=== PATIENT | female | born 1935 | race Two or more races ===

== ENCOUNTER 2021-08-21 13:15 | Inpatient (IN) | payer MEDICARE, OTHER ==
[~2021-08-21] VITALS: Ht 165.1 cm; Wt 62.6 kg
--- NOTE | 2021-08-21 13:28 | NUR ---
DR JEAN-BAPTISTE AT BEDSIDE
--- NOTE | 2021-08-21 13:35 | NUR ---
COVID 19 AG SWAB DONE AND SENT TO LAB
--- NOTE | 2021-08-21 13:55 | NUR ---
URINE SAMPLE COLLECTED FROM DUFFY CATHETER. SENT TO LAB
[2021-08-21] MEDS ORDERED: IV NS 0.9% 1,000 ML BAG IV ONE ×2 (14:00→15:30)
[2021-08-21 14:16] LABS: BASOPHILS % (AUTO) 0.3 % (0.0-2.0); EOSINOPHILS % (AUTO) 0.5 % (0.0-6.0); HEMATOCRIT 34 % (33-45); HEMOGLOBIN 11.5 g/dL (11.5-14.8); LYMPHOCYTES # (AUTO) 1.9 K/uL (0.8-4.8); LYMPHOCYTES % (AUTO) 24.1 % (20.0-44.0); MEAN CORPUSCULAR HGB CONC 34 g/dl (31.0-36.0); MEAN CORPUSCULAR VOLUME 98 fL (82-100); MONOCYTES # (AUTO) 0.7 K/uL (0.1-1.30); MONOCYTES % (AUTO) 8.9 % (2.0-12.0); NEUTROPHILS # (AUTO) 5.2 K/uL (1.8-8.9); NEUTROPHILS % (AUTO) 66.2 % (43.0-81.0); PLATELET COUNT (AUTO) 94 K/uL (150-450); WHITE BLOOD COUNT (AUTO) 7.9 K/uL (4.3-11.0)
[2021-08-21 14:19] LABS: BILIRUBIN,URINE NEGATIVE (NEGATIVE); COLOR,URINE YELLOW (YELLOW); LEUKOCYTE ESTERASE ,URINE MODERATE (NEGATIVE); NITRITE, URINE POSITIVE (NEGATIVE); PH,URINE 5.5 (5.0-8.0); PROTEIN,URINE 30 mg/dl (NEGATIVE); UGLUCOSE NEGATIVE (NEGATIVE); UROBILINOGEN,URINE 0.2 EU/dL (0.2)
--- NOTE | 2021-08-21 14:21 | NUR ---
MOVE SHEET SUBMITTED AND CALLED FOR TELE BED.
[2021-08-21 14:22] LABS: CALCIUM, SERUM 8.7 mg/dL (8.5-10.1); CARBON DIOXIDE 31 mmol/L (21-32); CHLORIDE 105 mmol/L (98-107); CREATININE 1.4 mg/dL (0.6-1.3); GLUCOSE 281 mg/dL (74-106); POTASSIUM 4.5 mmol/L (3.5-5.1); SODIUM SERUM 144 mmol/L (136-145); UREA NITROGEN, BLOOD 66 mg/dL (7-18)
[2021-08-21] MEDS ORDERED: MIRT-90 PO (14:22)
[2021-08-21] MEDS ORDERED: GLIP5TAB13 PO (14:22)
[2021-08-21] MEDS ORDERED: ATOR10TA PO (14:22)
[2021-08-21] MEDS ORDERED: FURO40TA5 PO (14:22)
[2021-08-21] MEDS ORDERED: DIGO125T PO (14:22)
[2021-08-21] MEDS ORDERED: PANT40TA49 PO (14:22)
[2021-08-21] MEDS ORDERED: TAMS-12 PO (14:22)
[2021-08-21] MEDS ORDERED: FOLI0.4T6 PO (14:22)
[2021-08-21] MEDS ORDERED: CARV25TA2 PO (14:22)
[2021-08-21 14:23] LABS: SERUM AMMONIA 18 umol/L (11-32)
[2021-08-21 14:32] LABS: ACETAMINOPHEN < 2 ug/ml (10-30); ALANINE AMINOTRANSFERASE 26 U/L (12-78); ALBUMIN 3.1 g/dL (3.4-5.0); ALCOHOL, BLOOD < 3 mg/dL (0-0); ALKALINE PHOSPHATASE 116 U/L (46-116); ASPARTATE AMINOTRANSFERASE 18 U/L (15-37); BILIRUBIN,DIRECT 0.3 mg/dL (0.0-0.2); BILIRUBIN,TOTAL 0.5 mg/dL (0.2-1.0)
[2021-08-21 14:33] LABS: BACTERIA,URINE Moderate /HPF (None Seen); SQUAMOUS EPITHELIAL CELL,UR Rare /HPF (None Seen); WBC,URINE TOO NUMEROUS TO COUN /HPF (0-3)
[2021-08-21 14:35] LABS: THYROID STIMULATING HORMONE 1.004 uIU/mL (0.358-3.74)
[2021-08-21] MEDS ORDERED: INSU100I40 SQ (14:35)
[2021-08-21] MEDS ORDERED: QUET25TA PO (14:35)
[2021-08-21] MEDS ORDERED: ASPIRIN 300 MG/SUPP.RECT RC ONE ×2 (15:30→15:36)
[2021-08-21] MEDS ORDERED: CEFEPIME 1 GM in IV D5W 50 ML IV ONE (15:30)
[2021-08-21] MEDS ORDERED: VANCOMYCIN 1 GM in IV D5W 250 ML IV ONE (15:30)
--- NOTE | 2021-08-21 15:31 | NUR ---
[facility] CALLED MANAGEMENT TRAINEE PAGED.
--- NOTE | 2021-08-21 15:45 | NUR ---
VERIFIED ORDER OF NS 1800ML WITH DR JERILYN MD WOULD LIKE A TOTAL OF 1800ML OF NS FOR THE PATIENT. PATIENT ALREADY GIVEN 1000ML OF NS.
--- NOTE | 2021-08-21 18:20 | NUR ---
LAB CALLED LACTIC ACID 2.1 DR. TREADWELL NOTIFIED.
[2021-08-21] MEDS ORDERED: ONDANSETRON HCL/PF 4 MG/2 ML VIAL IVP PRN (19:00)
[2021-08-21] MEDS ORDERED: DEXTROSE 50%-WATER 50 ML DISP.SYRIN IV PRN (19:00)
[2021-08-21] MEDS ORDERED: HEPARIN SODIUM, PORCINE 5000 UNITS/1 ML VIAL SQ SCH (21:00)
--- NOTE | 2021-08-21 21:15 | NUR ---
RECIEVED 111-1
[2021-08-21] MEDS ORDERED: CEFTRIAXONE 1GM BAG (ER ONLY) 50 ML IV ONE (22:44)
[2021-08-21] MEDS: CEFTRIAXONE 1 G in IV D5W 50 ML IV SCH (22:51)
[2021-08-21] MEDS: BLOOD SUGAR DIAGNOSTIC 1 EACH STRIP IN SCH (22:51)
[2021-08-21] MEDS ORDERED: INSULIN REGULAR, HUMAN 100 UNIT/ML 10 ML VIAL ONE (23:01)
[2021-08-21] MEDS: INSULIN REGULAR, HUMAN 100 UNIT/ML 3 ML VIAL SQ PRN (23:07)
--- NOTE | 2021-08-21 23:30 | NUR ---
REPORT GIVEN TO TREVOR OCONNOR FOR CONTINUATION OF CARE
--- NOTE | 2021-08-21 23:40 | NUR ---
PATIENT TRANSFERRED TO TELE BED 111-1 VIA ACLS PROTOCOL.
[2021-08-21] MEDS: IV NS 0.9% 1,000 ML IV PRN (23:56)
[2021-08-22] VITALS: BP 160/67
[2021-08-22] MEDS: IV NS 0.9% 1,000 ML IV PRN ×2 (00:08→16:58)
[2021-08-22] MEDS: ATORVASTATIN 10 MG TABLET PO SCH ×2 (00:09→21:23)
[2021-08-22 04:00] VITALS: BP 166/60
[2021-08-22 06:06] LABS: BASOPHILS % (AUTO) 0.5 % (0.0-2.0); EOSINOPHILS % (AUTO) 3.5 % (0.0-6.0); HEMATOCRIT 32 % (33-45); HEMOGLOBIN 11.1 g/dL (11.5-14.8); LYMPHOCYTES # (AUTO) 1.7 K/uL (0.8-4.8); LYMPHOCYTES % (AUTO) 18.9 % (20.0-44.0); MEAN CORPUSCULAR HGB CONC 35 g/dl (31.0-36.0); MEAN CORPUSCULAR VOLUME 98 fL (82-100); MONOCYTES # (AUTO) 0.6 K/uL (0.1-1.30); MONOCYTES % (AUTO) 6.7 % (2.0-12.0); NEUTROPHILS # (AUTO) 6.5 K/uL (1.8-8.9); NEUTROPHILS % (AUTO) 70.4 % (43.0-81.0); PLATELET COUNT (AUTO) 82 K/uL (150-450); RED BLOOD CELL COUNT(AUTO) 3.28 MIL/uL (4.0-5.2); WHITE BLOOD COUNT (AUTO) 9.2 K/uL (4.3-11.0)
--- NOTE | 2021-08-22 06:15 | NUR ---
RN notes Admitted an 85 year old from ER via stretcher with an admitting diagnosis of UTI/AMS. Alert and oriented with confusion. Verbally able to communicate needs. No complaint of pain. No distress noted. Breathing even and unlabored. On 2 lpm via nasal cannula tolerating well. Gomez Catheter in place draining clear yellow with no foul odor urine. Kept clean and dry. Will endorse to next shift for continuity of care.
--- NOTE | 2021-08-22 06:36 | NUR ---
RN notes Platelet count is trending down from 94 at 13:32 and 82 at 05:38. MD made aware and asked for clarification of heparin order which is pending as of this time. Waiting for response. Will endorse to next shift to follow up.
[2021-08-22 07:43] LABS: CREATININE 1.2 mg/dL (0.6-1.3); MAGNESIUM 2.1 mg/dL (1.8-2.4); PHOSPHORUS 3.7 mg/dL (2.5-4.9); POTASSIUM 4.1 mmol/L (3.5-5.1)
--- NOTE | 2021-08-22 07:43 | NUR ---
telemarketing manager note patient in bed alert with some confusion , on tele monitor afib hr 74 , rt ac hl intact and flushed well on ivf as ordered , bed in lowest and locked position , will cont to monitor call light within reach, will cont to monitor
[2021-08-22] MEDS: BLOOD SUGAR DIAGNOSTIC 1 EACH STRIP IN SCH ×4 (07:54→22:10)
[2021-08-22] MEDS: INSULIN REGULAR, HUMAN 100 UNIT/ML 3 ML VIAL SQ PRN ×4 (07:58→22:14)
[2021-08-22 08:00] VITALS: BP 149/66
[2021-08-22] MEDS: FOLIC ACID 1 MG TABLET PO SCH (08:55)
--- NOTE | 2021-08-22 11:14 | NUR ---
GLASS CUTTER NOTE PT EVAL DONE ALSO HERBIE BAKER NOTIFIED THAT HEPARIN D\C STATED PLATELETS IS 82 ,ALSO AWARE THAT TROPONIN NEW IS 0.222 AWARE THAT PER MED RECON ON COREG STATED THAT WILL CHEK IT AWARE THAT BP EARLIER 149\66 AND PATINE VERY AGITATED A ND YELLING OUT
--- NOTE | 2021-08-22 11:43 | NUR ---
telehealth nurse note per son called to Luz ndiaye technology coach to call son phone number given , angelina lf\u
--- NOTE | 2021-08-22 11:49 | NUR ---
director television note 2decho done as ordered
[2021-08-22 12:00] VITALS: BP 173/81
[2021-08-22] MEDS: hydrALAZINE HCL 10 MG TABLET PO SCH ×2 (12:27→21:23)
--- NOTE | 2021-08-22 15:42 | NUR ---
telecommunications repairer note rounds made all needs attended keep clean dty, call light within reach
[2021-08-22 16:00] VITALS: BP 162/79
--- NOTE | 2021-08-22 19:30 | NUR ---
MEDICAL STAFF CREDENTIALING COORDINATOR OPENING NOTE PATIENT AWAKE IN BED, ALERT/ORIENTED X 1, CONFUSED. PATIENT ON EXTERNAL CLINICAL STAFF EDUCATOR READING A. FIB, HR: 89. PT STABLE ON 2 LPM OF OXYGEN VIA NC, NO S/S OF DISTRESS OR SOB NOTED. IV ACCESS ON RIGHT AC #18G INTACT AND RUNNING NS @ 75 ML/HR. DUFFY CATH INTACT DRAINING YELLOW URINE. SAFETY MEASURES IN PLACE: CALL LIGHT WITHIN REACH, SIDE RAILS UP X 3, BED LOCKED IN LOW POSITION, HOB ELEVATED, BED ALARM ON. WILL CONTINUE TO MONITOR PATIENT
[2021-08-22 20:00] VITALS: BP 141/69
[2021-08-22] MEDS: CEFTRIAXONE 1 G in IV D5W 50 ML IV SCH (22:10)
[2021-08-22] MEDS: QUETIAPINE FUMARATE 25 MG TABLET PO SCH (22:11)
[2021-08-22] MEDS: MIRTAZAPINE 15 MG TABLET PO SCH (22:11)
[2021-08-23] VITALS: BP 124/72
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
[2021-08-23] MEDS ORDERED: LORAZEPAM INJ 2 MG/ML VIAL IV ONE (02:30)
[2021-08-23 04:00] VITALS: BP 135/76
[2021-08-23] MEDS: hydrALAZINE HCL 10 MG TABLET PO SCH ×3 (05:44→21:28)
[2021-08-23 07:08] LABS: CALCIUM, SERUM 7.9 mg/dL (8.5-10.1); CREATININE 1.1 mg/dL (0.6-1.3); MAGNESIUM 2.2 mg/dL (1.8-2.4); PHOSPHORUS 3.8 mg/dL (2.5-4.9); POTASSIUM 3.9 mmol/L (3.5-5.1)
--- NOTE | 2021-08-23 07:26 | NUR ---
REGIONAL OTR COMPANY DRIVER CLOSING NOTE PATIENT SLEEPING IN BED, NO S/S OF DISTRESS OR SOB NOTED, BREATHING EVEN AND UNLABORED. RIGHT AC IV ACCESS RUNNING NS @ 75 ML/HR. DUFFY CATHETER INTACT AND DRAINING YELLOW URINE. MEDICATIONS GIVEN ORDERED, PT NEEDS MET THROUGHOUT SHIFT. SAFETY MEASURES IN PLACE: CALL LIGHT WITHIN REACH, SIDE RAILS UP X 3, BED LOCKED IN LOW POSITION, HOB ELEVATED, BED ALARM ON. ENDORSED TO DAY SHIFT NURSE FOR CONTINUITY OF CARE
--- NOTE | 2021-08-23 07:30 | NUR ---
RN OPENING NOTE PATIENT SLEEPING IN BED UPON ASSESSMENT, NO S/S OF DISTRESS OR SOB NOTED. PT ON NASAL CANNULA @ 3 LPM TOLERATING WELL WITH BREATHING EVEN AND UNLABORED AND O2SAT OF 98%. RIGHT AC IV ACCESS RUNNING NS @ 75 ML/HR. DUFFY CATHETER INTACT AND DRAINING YELLOW URINE. SAFETY MEASURES IN PLACE: CALL LIGHT WITHIN REACH, SIDE RAILS UP X 3, BED LOCKED IN LOW POSITION, HOB ELEVATED, BED ALARM ON. WILL CONTINUE TO MONITOR.
[2021-08-23 07:33] LABS: BASOPHILS % (AUTO) 0.5 % (0.0-2.0); EOSINOPHILS % (AUTO) 3.9 % (0.0-6.0); HEMATOCRIT 31 % (33-45); HEMOGLOBIN 10.6 g/dL (11.5-14.8); LYMPHOCYTES # (AUTO) 2.2 K/uL (0.8-4.8); LYMPHOCYTES % (AUTO) 27.5 % (20.0-44.0); MEAN CORPUSCULAR HGB CONC 34 g/dl (31.0-36.0); MEAN CORPUSCULAR VOLUME 100 fL (82-100); MONOCYTES # (AUTO) 0.8 K/uL (0.1-1.30); MONOCYTES % (AUTO) 9.3 % (2.0-12.0); NEUTROPHILS # (AUTO) 4.8 K/uL (1.8-8.9); NEUTROPHILS % (AUTO) 58.8 % (43.0-81.0); PLATELET COUNT (AUTO) 86 K/uL (150-450); RED BLOOD CELL COUNT(AUTO) 3.13 MIL/uL (4.0-5.2); WHITE BLOOD COUNT (AUTO) 8.2 K/uL (4.3-11.0)
[2021-08-23 08:00] VITALS: BP 132/72
[2021-08-23] MEDS: BLOOD SUGAR DIAGNOSTIC 1 EACH STRIP IN SCH ×4 (08:24→22:55)
[2021-08-23] MEDS: FOLIC ACID 1 MG TABLET PO SCH (08:25)
[2021-08-23] MEDS: IV NS 0.9% 1,000 ML IV PRN (10:18)
[2021-08-23 12:00] VITALS: BP 168/94
[2021-08-23] MEDS: INSULIN REGULAR, HUMAN 100 UNIT/ML 3 ML VIAL SQ PRN ×2 (12:24→16:43)
[2021-08-23] MEDS: ACETAMINOPHEN 325 MG TABLET PO PRN (15:44)
[2021-08-23 16:00] VITALS: BP 156/80
--- NOTE | 2021-08-23 18:46 | NUR ---
RN CLOSING NOTE PATIENT REMAINED STABLE THROUGHOUT SHIFT , NO S/S OF DISTRESS OR SOB NOTED. PT ON NASAL CANNULA @ 3 LPM TOLERATING WELL WITH BREATHING EVEN AND UNLABORED AND O2SAT OF 98%. RIGHT AC IV ACCESS RUNNING NS @ 75 ML/HR. DUFFY CATHETER INTACT AND DRAINING YELLOW URINE. SAFETY MEASURES IN PLACE: CALL LIGHT WITHIN REACH, SIDE RAILS UP X 3, BED LOCKED IN LOW POSITION, HOB ELEVATED, BED ALARM ON. WILL ENDORSE TO CROOK OPERATOR RN.
--- NOTE | 2021-08-23 19:35 | NUR ---
RN OPENING NOTE RECEIVED PATIENT RESTING IN BED, CONFUSED AND NOT FULLY ALERT , NO S/S OF DISTRESS OR SOB NOTED. PT ON NASAL CANNULA @ 3 LPM TOLERATING WELL WITH BREATHING EVEN AND UNLABORED AND O2SAT OF 97%. RIGHT AC IV ACCESS IS LEAKING AND IS NOT INTACT, DAY SHIFT RN WILL REMOVE. DUFFY CATHETER INTACT AND DRAINING YELLOW URINE. SAFETY MEASURES IN PLACE: CALL LIGHT WITHIN REACH, SIDE RAILS UP X 3, BED LOCKED IN LOW POSITION, HOB ELEVATED, BED ALARM ON. WILL CONTINUE PLAN OF CARE FOR PATIENT.
[2021-08-23 20:00] VITALS: BP 154/107
[2021-08-23] MEDS: ATORVASTATIN 10 MG TABLET PO SCH (21:27)
[2021-08-23] MEDS: MIRTAZAPINE 15 MG TABLET PO SCH (21:27)
[2021-08-23] MEDS: QUETIAPINE FUMARATE 25 MG TABLET PO SCH (21:28)
[2021-08-23] MEDS: CEFTRIAXONE 1 G in IV D5W 50 ML IV SCH (21:29)
[2021-08-24] VITALS: BP 157/68
[2021-08-24 04:00] VITALS: BP 152/76
[2021-08-24] MEDS: IV NS 0.9% 1,000 ML IV PRN ×2 (04:56→19:09)
[2021-08-24] MEDS: hydrALAZINE HCL 10 MG TABLET PO SCH ×3 (05:52→21:47)
--- NOTE | 2021-08-24 06:17 | NUR ---
RN CLOSING NOTE ALL PATIENT NEEDS MET THROUGHOUT THE NIGHT, ALL MEDS GIVEN. NEW IV SITE ON RIGHT WRIST, FLUSHING 75 ML/HR NS. PATIENT HAD PERIODS OF CONFUSION AND OUTBURSTS AT TIME, HOWEVER NOW IS SLEEPING QUIETLY.
--- NOTE | 2021-08-24 07:17 | NUR ---
WOUND CARE CONSULT: PT SLEEPING SOUNDLY AT THIS TIME. REVIEWED CHART, NURSING DOCUMENTATION AND PHOTOS WHICH INDICATE SACRAL INTACT DEEP TISSUE INJURY AND SCARRING, PRESENT ON ADMISSION. DR WIGGINS TO BE CALLED THIS AM FOR SURGICAL CONSULT. RECOMMENDATIONS MADE FOR SKIN PROTECTION. DISCUSSED WITH NURSING STAFF. CURRENT PEDRO SCORE IS 14. MD IN AGREEMENT WITH PLAN OF CARE.
[2021-08-24] MEDS ORDERED: Z GUARD REMEDY 4 OZ OINT TP PRN (07:30)
--- NOTE | 2021-08-24 07:45 | NUR ---
CNC LATHE MACHINE OPERATOR NOTES RECEIVED PATIENT IN BED, AWAKE, ALERT/ORIENTED X1-2 WITH CONFUSION AND VERNALLY RESPONSIVE. NO SOB NOTED. BREATHING EVEN AND UNLABORED. ON 3L/MIN VIA N/C AND PT TOLERATING WELL. IV ACCESS LEFT WRIST INTACT. NO S/S OF INFILTRATIONS. INTACT AND PATENT. NO BLEEDING NOTED. NO C/O PAIN OR DISCOMFORT. NO ACUTE DISTRESS. DUFFY CATHETER INTACT AND PATENT WITH YELLOWISH/CLEAR URINE, . ALL SAFETY MEASURES IN PLACE. HOB ELEVATED, BED LOW POSITION AND LOCKED, PLACE CALL LIGHT WITHIN REACH. WILL CONTINUE TO MONITOR.
[2021-08-24 08:00] VITALS: BP 158/79
[2021-08-24] MEDS: FOLIC ACID 1 MG TABLET PO SCH (08:02)
[2021-08-24] MEDS: Z GUARD REMEDY 4 OZ OINT TP SCH (08:03)
[2021-08-24] MEDS: BLOOD SUGAR DIAGNOSTIC 1 EACH STRIP IN SCH ×4 (08:06→21:47)
[2021-08-24] MEDS: INSULIN REGULAR, HUMAN 100 UNIT/ML 3 ML VIAL SQ PRN ×4 (08:06→21:53)
--- NOTE | 2021-08-24 10:21 | NUR ---
telephone cleaner note sleeping comfortably at this time, all needs attended will monitor
--- NOTE | 2021-08-24 11:25 | NUR ---
telegraphic typewriter mechanic note pt at bedside, able to sit ar edge of bed all needs attended
[2021-08-24 12:00] VITALS: BP 168/78
--- NOTE | 2021-08-24 12:30 | NUR ---
telescope operator note charge nurse give report to snf , awaiting for ambulance
--- NOTE | 2021-08-24 13:53 | NUR ---
television news producer note son refused to d\c patient, spoke with dependency case manager dr trev jiménez will called to son , will f\u
[2021-08-24] MEDS: DOCUSATE SODIUM 100 MG CAPSULE PO SCH ×2 (14:24→16:49)
--- NOTE | 2021-08-24 14:54 | NUR ---
DEHYDRATING PRESS OPERATOR NOTE C\O CONSTIPATION CALLED TO DR CRUZ WITH ORDER COLACE ORDERED ,WILL F\U
[2021-08-24 16:00] VITALS: BP 169/78
--- NOTE | 2021-08-24 16:50 | NUR ---
telephone interceptor operator note Colace given at 1430
--- NOTE | 2021-08-24 18:42 | NUR ---
FINANCIAL AID OFFICER NOTE PATIENT IN BED ALERT WITH CONFUSION , ALL NEEDS ATTENDED ON IVF ORDERED WILL CONT TO MONIOTR CLOSELY
[2021-08-24 20:00] VITALS: BP 171/83
[2021-08-24] MEDS: CEFTRIAXONE 1 G in IV D5W 50 ML IV SCH (21:23)
[2021-08-24] MEDS: QUETIAPINE FUMARATE 25 MG TABLET PO SCH (21:46)
[2021-08-24] MEDS: ATORVASTATIN 10 MG TABLET PO SCH (21:46)
[2021-08-24] MEDS: MIRTAZAPINE 15 MG TABLET PO SCH (21:49)
[2021-08-25] VITALS: BP 149/62
[2021-08-25] MEDS: LORAZEPAM INJ 2 MG/ML VIAL IV PRN ×2 (00:43→18:01)
--- NOTE | 2021-08-25 00:55 | NUR ---
MARYLOU/UPSETTER PT IS SEVERLY AGITATED, CALLED THE [facility] FOR ATIVAN PRN, RECIEVED AN ORDER FOR PRN EVERY 6 HOURS 0.5 IVP ATIVAN . ORDERS WERE RECIEVED AND CARRIED OUT CHARGE NURSE MADE AWARE AND GAVE MEDICATION
[2021-08-25 04:00] VITALS: BP 139/85
[2021-08-25] MEDS: hydrALAZINE HCL 10 MG TABLET PO SCH ×3 (05:31→20:02)
[2021-08-25] MEDS: BLOOD SUGAR DIAGNOSTIC 1 EACH STRIP IN SCH ×4 (05:32→21:18)
[2021-08-25] MEDS: INSULIN REGULAR, HUMAN 100 UNIT/ML 3 ML VIAL SQ PRN ×3 (05:33→17:05)
--- NOTE | 2021-08-25 07:20 | NUR ---
RN OPENING NOTES RECEIVED PT RESTING IN BED, EASILY AROUSED. ON O2 @ 3LPM VIA N/C SATURATION @ 100 %. NO S/SX OF PAIN AT THIS TIME. WITH IV ACCESS ON RIGHT WRIST, INTACT AND PATENT. NS @ 75 ML /HR RUNNING. ON TELE MONITOR WITH CURRENT READING SHOWING AFIB @97. SAFETY MEASURES IN PLACE. BED LOCKED AND IN LOWEST POSITION, SR UP, CALL LIGHT PLACED WITHIN EASY REACH. WILL CONTINUE TO MONITOR.
[2021-08-25 08:00] VITALS: BP 158/74
[2021-08-25] MEDS: DOCUSATE SODIUM 100 MG CAPSULE PO SCH ×2 (08:10→16:44)
[2021-08-25] MEDS: FOLIC ACID 1 MG TABLET PO SCH (08:10)
[2021-08-25] MEDS: Z GUARD REMEDY 4 OZ OINT TP SCH (08:24)
--- NOTE | 2021-08-25 11:07 | NUR ---
RN NOTES PATIENT C/O COUGH WITH PHLEGM, REQUESTING FOR MUCINEX EXPECTORANT, DR. CRUZ MADE AWARE, WITH ORDERS, CARRIED OUT.
[2021-08-25] MEDS: GUAIFENESIN LA 600 MG TABLET.SA PO PRN (11:47)
[2021-08-25 12:00] VITALS: BP 168/77
[2021-08-25 16:00] VITALS: BP 163/85
--- NOTE | 2021-08-25 18:45 | NUR ---
RN CLOSING NOTES PT RESTING IN BED, EASILY AROUSED. ON O2 @ 3LPM VIA N/C SATURATION @ 100 %. NO S/SX OF PAIN AT THIS TIME. WITH IV ACCESS ON RIGHT WRIST, INTACT AND PATENT, SL. WITH ELTON MIDLINE, INTACT AND PATENT WITH NS @ 75 ML /HR RUNNING. ON TELE MONITOR WITH CURRENT READING SHOWING CONTROLLED AFIB @ 97. SAFETY MEASURES IN PLACE. BED LOCKED AND IN LOWEST POSITION, SR UP, CALL LIGHT PLACED WITHIN EASY REACH. WILL ENDORSE TO NEXT SHIFT.
[2021-08-25 20:00] VITALS: BP 162/83
--- NOTE | 2021-08-25 20:00 | NUR ---
RN OPENING NOTES Patient is A&Ox1. Son confirmed that patient sundowns at nighttime. No signs of distress. Denies pain or discomfort. Satting at 100% on 3L via NC. ELTON midline flushed and patent -NS infusing at 75cc/hr. Gomez draining dark yellow urine. Will continue to monitor patient.
[2021-08-25] MEDS: IV NS 0.9% 1,000 ML IV PRN (20:25)
[2021-08-25] MEDS: ATORVASTATIN 10 MG TABLET PO SCH (21:08)
[2021-08-25] MEDS: CEFTRIAXONE 1 G in IV D5W 50 ML IV SCH (21:08)
[2021-08-25] MEDS: QUETIAPINE FUMARATE 25 MG TABLET PO SCH (21:08)
[2021-08-25] MEDS: MIRTAZAPINE 15 MG TABLET PO SCH (21:08)
[2021-08-26] VITALS: BP 165/79
[2021-08-26] MEDS: LORAZEPAM INJ 2 MG/ML VIAL IV PRN ×2 (02:12→23:53)
--- NOTE | 2021-08-26 02:17 | NUR ---
Patient woke up anxious and confused. PRN ativan given.
[2021-08-26 04:45] VITALS: BP 154/84
[2021-08-26] MEDS: hydrALAZINE HCL 10 MG TABLET PO SCH ×3 (04:57→21:26)
--- NOTE | 2021-08-26 06:14 | NUR ---
RN CLOSING NOTES Patient is sleeping but easy to wake A&Ox2 to person and place currently. No signs of distress at this time. Patient at bedtime was confused and anxious worrying about random things like paying bills, restless, but after PRN Ativan was given around 0200 patient was able to sleep well throughout the night. Turned q2h, kept clean and dry, mepilex to sacrum. Controlled Afib 80s on the tele monitor. Tolerated IV ABX well, no adverse side effects. ELTON midline #18G intact and patent NS running at 75cc/hr. Nos/s of hypo or hyperglycemic reactions.
[2021-08-26] MEDS: IV NS 0.9% 1,000 ML IV PRN ×2 (06:35→18:49)
[2021-08-26] MEDS: BLOOD SUGAR DIAGNOSTIC 1 EACH STRIP IN SCH ×4 (06:48→22:25)
--- NOTE | 2021-08-26 07:22 | NUR ---
RN OPENING NOTES RECEIVED PT RESTING IN BED, EASILY AWAKEN BY VERBAL AND TACTILE STIMULI. ON O2 @ 3LPM VIA N/C SATURATING WELL, NO RESPIRATORY DISTRESS NOTED. NO S/SX OF PAIN AT THIS TIME. WITH IV ACCESS ON RIGHT WRIST, INTACT AND PATENT. NS @ 75 ML /HR RUNNING, NO S/SX OF INFILTRATION NOTED. ON TELE MONITOR WITH CURRENT READING SHOWING A FIB HR @87. SAFETY MEASURES IN PLACE. BED LOCKED AND IN LOWEST POSITION, SIDE RAILS UP X 2, CALL LIGHT PLACED WITHIN EASY REACH. WILL CONTINUE TO MONITOR ACCORDINGLY.
[2021-08-26 08:00] VITALS: BP 158/74
[2021-08-26] MEDS: Z GUARD REMEDY 4 OZ OINT TP SCH (08:03)
[2021-08-26] MEDS: DOCUSATE SODIUM 100 MG CAPSULE PO SCH ×2 (08:03→16:15)
[2021-08-26] MEDS: FOLIC ACID 1 MG TABLET PO SCH (08:03)
[2021-08-26] MEDS: GLUCERNA SHAKE 237 ML CAN PO SCH ×2 (11:19→16:15)
[2021-08-26] MEDS: INSULIN REGULAR, HUMAN 100 UNIT/ML 3 ML VIAL SQ PRN ×2 (11:19→22:30)
[2021-08-26 12:10] VITALS: BP 167/75
[2021-08-26 16:00] VITALS: BP 159/70
--- NOTE | 2021-08-26 18:27 | NUR ---
RN CLOSING NOTES PT RESTING IN BED, AWAKE, SON AT BEDSIDE, ON O2 @ 3LPM VIA N/C SATURATING WELL, NO RESPIRATORY DISTRESS NOTED. NO S/SX OF PAIN AT THIS TIME. WITH IV ACCESS ON RIGHT WRIST G#22, ELTON MIDLINE G#18, INTACT AND PATENT. NS @ 75 ML /HR RUNNING, NO S/SX OF INFILTRATION NOTED. ON TELE MONITOR WITH READING SHOWING A FIB HR @87. SAFETY MEASURES IN PLACE. BED LOCKED AND IN LOWEST POSITION, SIDE RAILS UP X 2, CALL LIGHT PLACED WITHIN EASY REACH. ALL NEEDS ATTENDED AND MET, DUE MEDS GIVEN ORDERED. WILL ENDORSE TO ONCOMING SHIFT FOR MOHSEN.
--- NOTE | 2021-08-26 19:44 | NUR ---
TELE OPENING NOTE PATIENT RECEIVED ASLEEP IN BED. A/OX1. NO S/S OF DISTRESS, BREATHING SYMMETRICAL. RW #22 INTACT; ELTON MIDLINE #18 RUNNING NS @75ML/HR. TELE MONITOR REVEALS AFIB 88. SAFETY MEASURES IN PLACE: BED AT LOWEST POSITION, RAILS UP X2, CALL DUENAS WITHIN REACH. WILL CONTINUE TO MONITOR PATIENT. Addendum: 08/26/21 at 1950 by ALICIA DAVIES RN 3L CIELO
[2021-08-26] MEDS: MIRTAZAPINE 15 MG TABLET PO SCH (21:22)
[2021-08-26] MEDS: ATORVASTATIN 10 MG TABLET PO SCH (21:22)
[2021-08-26] MEDS: QUETIAPINE FUMARATE 25 MG TABLET PO SCH (21:23)
[2021-08-26] MEDS: CEFTRIAXONE 1 G in IV D5W 50 ML IV SCH (21:24)
[2021-08-26 22:00] VITALS: BP 160/95
[2021-08-27] VITALS: BP 146/71
[2021-08-27 04:00] VITALS: BP 174/87
[2021-08-27] MEDS: hydrALAZINE HCL 10 MG TABLET PO SCH ×3 (05:20→21:50)
--- NOTE | 2021-08-27 06:15 | NUR ---
TELE CLOSING NOTE PATIENT ASLEEP IN BED. A/OX1. NO S/S OF DISTRESS, BREATHING SYMMETRICAL. 3L NC. RW #22 INTACT; ELTON MIDLINE #18 RUNNING NS @75ML/HR. TELE MONITOR REVEALS AFIB 88. SAFETY MEASURES IN PLACE: BED AT LOWEST POSITION, RAILS UP X2, CALL DUENAS WITHIN REACH. WILL ENDORSE TO NEXT SHIFT FOR MOHSEN.
[2021-08-27] MEDS: LORAZEPAM INJ 2 MG/ML VIAL IV PRN ×2 (06:28→18:28)
--- NOTE | 2021-08-27 07:30 | NUR ---
LEASE ANALYST NOTES PT IN BED, AWAKE, ALERT, WITH CONFUSION, NOT IN DISTRESS, CALL LIGHT WITHIN REACH, KEPT WARM AND COMFORTABLE IN BED.
[2021-08-27 08:00] VITALS: BP 164/84
[2021-08-27] MEDS: GLUCERNA SHAKE 237 ML CAN PO SCH ×3 (08:33→16:39)
[2021-08-27] MEDS: DOCUSATE SODIUM 100 MG CAPSULE PO SCH ×2 (08:36→16:38)
[2021-08-27] MEDS: FOLIC ACID 1 MG TABLET PO SCH (08:36)
[2021-08-27] MEDS: Z GUARD REMEDY 4 OZ OINT TP SCH (08:37)
[2021-08-27] MEDS: INSULIN REGULAR, HUMAN 100 UNIT/ML 3 ML VIAL SQ PRN ×4 (08:43→22:10)
[2021-08-27] MEDS: BLOOD SUGAR DIAGNOSTIC 1 EACH STRIP IN SCH ×4 (08:43→22:05)
[2021-08-27] MEDS ORDERED: METOPROLOL TARTRATE INJ 5 MG/5 ML AMPUL IVP PRN (09:30)
--- NOTE | 2021-08-27 10:00 | NUR ---
CLUTCH MECHANIC NOTES PT SEEN AND EXAMINED BY DR. NELLI MD ORDERED TO START PT ON HEPARIN DRIP AFIB/NON-ACS PROTOCOL, PER MD OK TO BOLUS HEPARIN PRIOR TO START DRIP, HEPARIN FORM FAXED TO PHARMACY.
[2021-08-27] MEDS: METOPROLOL TARTRATE 25 MG TABLET PO SCH ×3 (10:15→16:39)
[2021-08-27 12:00] VITALS: BP 139/81
[2021-08-27] MEDS ORDERED: HEPARIN SODIUM, PORCINE 5000 UNITS/1 ML VIAL IV ONE (12:30)
[2021-08-27] MEDS: HEPARIN INFUSION/D5W 500 ML IV PRN (12:46)
[2021-08-27 16:00] VITALS: BP 148/81
--- NOTE | 2021-08-27 18:22 | NUR ---
DROP WIRER NOTES PT IN BED, ASLEEP, EASY TO AROUSE, ALERT TO NAME, WITH CONFUSION, ON HEPARIN DRIP PER PROTOCOL, NO SIGN OF BLEEDING, MONITOR SHOWS AFIB WITH HR BETWEEN 90S AND 120S, PM CARE PROVIDED, ASSISTED WITH MEALS, ALL NEEDS ATTENDED.
[2021-08-27] MEDS: GUAIFENESIN LA 600 MG TABLET.SA PO PRN (18:46)
--- NOTE | 2021-08-27 19:30 | NUR ---
RN NOTE RECEIVED PATIENT IN BED, AO X 1-2, IN NO ACUTE DISTRESS AT THIS TIME, SON AT BEDSIDE. SATURATION AT 100% ON 3LPM VIA NC, AFIB ON THE MONITOR, HR IS 94. NOTED IV SITE AT R WRIST 22G, AND ELTON MIDLINE, ALL HUBS PATENT AND FLUSHING WELL, NO S/S OF INFECTION WITH HEPARIN INFUSING AT 1100 UNITS PER HR. SAFETY MEASURES IMPLEMENTED. PATIENT BED ALARM IS ON. HEAD OF BED ELEVATED. BED IS LOCKED, IN LOWEST POSITION AND SIDE RAILS UP. CALL LIGHT WITHIN REACH OF THE PATIENT. WILL CONTINUE TO MONITOR AND REASSESS FOR ANY CHANGES. Addendum: 08/28/21 at 0359 by HUY BLAIR RN PER EKATERINA OCONNOR/AM SHIFT, ORDER RECEIVED FORM DR AIKEN TO USE HEPARIN PROTOCOL FOR NON ACS. WILL CONTINUE WITH THE SAME, PANELBOARD TANK PUMPER ELSA MADE AWARE
[2021-08-27 20:00] VITALS: BP 100/70
[2021-08-27] MEDS: QUETIAPINE FUMARATE 25 MG TABLET PO SCH (21:49)
[2021-08-27] MEDS: MIRTAZAPINE 15 MG TABLET PO SCH (21:50)
[2021-08-27] MEDS: ATORVASTATIN 10 MG TABLET PO SCH (21:50)
[2021-08-28] VITALS: BP 113/62
[2021-08-28] MEDS: LORAZEPAM INJ 2 MG/ML VIAL IV PRN ×2 (00:58→18:34)
[2021-08-28 04:00] VITALS: BP 136/83
[2021-08-28] MEDS: hydrALAZINE HCL 10 MG TABLET PO SCH ×3 (05:00→21:25)
--- NOTE | 2021-08-28 05:04 | NUR ---
RN NOTE PATIENT REFUSING PO INTAKE, UNABLE TO ADMINISTER SCHEDULED HYDRALAZINE 10 MG. NOTED HR AT 150-160'S, IRREGULAR. DR JIMENEZ WAS NOTIFIED, ORDER RECEIVED TO ADMINISTER PRN METOPROLOL 5 MG IV. PLASTER MAKER ELSA MADE AWARE
--- NOTE | 2021-08-28 06:30 | NUR ---
RN NOTE CRITICAL LAB: PTT =81.4, READ BACK WITH DANIEL. HEPARIN INFUSION DECREASED BY 100 UNITS/HR, CURRENT RATE 800 UNITS/HR. PRODUCTION FLOATER ELSA MADE AWARE
--- NOTE | 2021-08-28 06:31 | NUR ---
RN NOTE UNABLE TO WEIGH PATIENT ACCURATELY, BED SCALE NOT WORKING
--- NOTE | 2021-08-28 07:21 | NUR ---
RN OPENING NOTE RECEIVED PATIENT IN BED, AO X 1-2, IN NO ACUTE DISTRESS AT THIS TIME. SATURATION AT 100% ON 2LPM VIA NC, AFIB ON THE MONITOR, HR IS 90-140'S. NOTED IV SITE AT ELTON MIDLINE AND R WRIST AT 22G. ALL HUBS PATENT AND FLUSHING WELL, NO S/S OF INFECTION WITH HEPARIN INFUSING AT 800 UNITS PER HR. SAFETY MEASURES IMPLEMENTED. PATIENT BED ALARM IS ON. HEAD OF BED ELEVATED. BED IS LOCKED, IN LOWEST POSITION AND SIDE RAILS UP. CALL LIGHT WITHIN REACH OF THE PATIENT. WILL CONTINUE TO MONITOR THROUGHOUT SHIFT.
[2021-08-28] MEDS: GLUCERNA SHAKE 237 ML CAN PO SCH ×3 (07:38→17:06)
[2021-08-28] MEDS: BLOOD SUGAR DIAGNOSTIC 1 EACH STRIP IN SCH ×4 (07:38→22:14)
[2021-08-28] MEDS: INSULIN REGULAR, HUMAN 100 UNIT/ML 3 ML VIAL SQ PRN ×4 (07:48→22:10)
[2021-08-28 08:00] VITALS: BP 148/82
[2021-08-28] MEDS: METOPROLOL TARTRATE 25 MG TABLET PO SCH ×3 (08:53→17:06)
[2021-08-28] MEDS: DOCUSATE SODIUM 100 MG CAPSULE PO SCH ×2 (08:53→17:05)
[2021-08-28] MEDS: FOLIC ACID 1 MG TABLET PO SCH (08:53)
[2021-08-28] MEDS: Z GUARD REMEDY 4 OZ OINT TP SCH (08:54)
[2021-08-28] MEDS: FUROSEMIDE 20 MG/2 ML VIAL IV SCH ×2 (10:45→17:06)
[2021-08-28 12:00] VITALS: BP 125/60
[2021-08-28 16:00] VITALS: BP 132/73
[2021-08-28] MEDS: HEPARIN INFUSION/D5W 500 ML IV PRN (17:16)
[2021-08-28] MEDS: ACETAMINOPHEN 325 MG TABLET PO PRN (18:04)
--- NOTE | 2021-08-28 19:05 | NUR ---
RN CLOSING NOTE PATIENT ASLEEP IN BED. A/OX1. NO S/S OF DISTRESS, BREATHING SYMMETRICAL. PT ON 2L NC. SATING AT 98%. RW #22 INTACT; ELTON MIDLINE #18 RUNNING NS @75ML/HR. HEPARIN DRIP RUNNING AT 800 UNITS/HR. TELE MONITOR REVEALS AFIB 90-140'S. ALL SAFETY MEASURES IN PLACE: BED AT LOWEST LOCKED POSITION, RAILS UP X2, CALL DUENAS WITHIN REACH. WILL ENDORSE TO REAL TIME OPERATOR NURSE FOR MOHSEN.
[2021-08-28 20:00] VITALS: BP 143/72
[2021-08-28] MEDS: QUETIAPINE FUMARATE 25 MG TABLET PO SCH (21:25)
[2021-08-28] MEDS: ATORVASTATIN 10 MG TABLET PO SCH (21:25)
[2021-08-28] MEDS: MIRTAZAPINE 15 MG TABLET PO SCH (21:25)
[2021-08-29] VITALS: BP 126/70
[2021-08-29 04:00] VITALS: BP 133/65
[2021-08-29] MEDS: hydrALAZINE HCL 10 MG TABLET PO SCH ×3 (05:36→21:47)
[2021-08-29 06:44] LABS: BASOPHILS # (AUTO) 0.1 K/uL (0.0-0.2); BASOPHILS % (AUTO) 0.8 % (0.0-2.0); EOSINOPHILS % (AUTO) 3.8 % (0.0-6.0); HEMATOCRIT 37 % (33-45); HEMOGLOBIN 12.1 g/dL (11.5-14.8); LYMPHOCYTES # (AUTO) 2.1 K/uL (0.8-4.8); LYMPHOCYTES % (AUTO) 27.9 % (20.0-44.0); MEAN CORPUSCULAR HGB CONC 33 g/dl (31.0-36.0); MEAN CORPUSCULAR VOLUME 101 fL (82-100); MONOCYTES # (AUTO) 0.8 K/uL (0.1-1.30); MONOCYTES % (AUTO) 11.1 % (2.0-12.0); NEUTROPHILS # (AUTO) 4.2 K/uL (1.8-8.9); NEUTROPHILS % (AUTO) 56.4 % (43.0-81.0); PLATELET COUNT (AUTO) 102 K/uL (150-450); RED BLOOD CELL COUNT(AUTO) 3.64 MIL/uL (4.0-5.2); WHITE BLOOD COUNT (AUTO) 7.4 K/uL (4.3-11.0)
--- NOTE | 2021-08-29 06:55 | NUR ---
RN notes In bed resting comfortably with no distress noted. Breathing even and unlabored. Non ambulatory, with episode of anxiety, shouting. No physical manifestation of pain or discomfort. Vital signs within normal limits. Kept clean and dry. Will endorse to next shift for continuity of care.
[2021-08-29 08:00] VITALS: BP 133/64
[2021-08-29] MEDS: BLOOD SUGAR DIAGNOSTIC 1 EACH STRIP IN SCH ×4 (08:03→22:03)
[2021-08-29] MEDS ORDERED: HEPARIN SODIUM, PORCINE 5000 UNITS/1 ML VIAL IV ONE (08:30)
--- NOTE | 2021-08-29 08:44 | NUR ---
RN NOTE PTT-44.5 THIS AM, PER PROTOCOL IV BOLUS 2400U GIVEN AND INCREASED DRIP TO 100U/HR. PTT R/C AT 1430.
[2021-08-29] MEDS: FUROSEMIDE 20 MG/2 ML VIAL IV SCH ×2 (09:16→17:32)
[2021-08-29] MEDS: Z GUARD REMEDY 4 OZ OINT TP SCH (09:16)
[2021-08-29] MEDS: DOCUSATE SODIUM 100 MG CAPSULE PO SCH ×2 (09:16→17:33)
[2021-08-29] MEDS: FOLIC ACID 1 MG TABLET PO SCH (09:16)
[2021-08-29] MEDS: METOPROLOL TARTRATE 25 MG TABLET PO SCH ×3 (09:16→17:33)
[2021-08-29 09:58] LABS: ALBUMIN 2.4 g/dL (3.4-5.0); BILIRUBIN,TOTAL 0.2 mg/dL (0.2-1.0); CALCIUM, SERUM 8.1 mg/dL (8.5-10.1); CREATININE 1.3 mg/dL (0.6-1.3); MAGNESIUM 2.3 mg/dL (1.8-2.4); PHOSPHORUS 4.9 mg/dL (2.5-4.9); POTASSIUM 4.5 mmol/L (3.5-5.1); TOTAL PROTEIN, SERUM 7.1 g/dL (6.4-8.2)
[2021-08-29 12:00] VITALS: BP 157/85
[2021-08-29] MEDS: GLUCERNA SHAKE 237 ML CAN PO SCH ×3 (12:28→17:33)
[2021-08-29 16:00] VITALS: BP 129/61
--- NOTE | 2021-08-29 16:00 | NUR ---
TRUCK RAILROAD AND BUS MOTOR MECHANIC NOTE PTT 79 PER HOSPITAL PROTOCOL DECREASE BY 2 UNITS \KG\H PTT IN 6 HOUR , WILL F\U, WILL INFUSE HEPARIN DRIP AT 800 UNITS \KG\HOUR
--- NOTE | 2021-08-29 17:00 | NUR ---
LEHR TENDER NOTE CALLED TO DR CRUZ REPORTED CT HEAD RESULT NO NEW ORDER GIVEN AT TIS TIME
--- NOTE | 2021-08-29 19:32 | NUR ---
RN NOTE PATIENT RESTING IN BED. A/OX1. NO S/S OF DISTRESS, BREATHING SYMMETRICAL. PT ON 2L NC. SATING AT 98%. ELTON MIDLINE #[address] AND PATENT, HEPARIN DRIP RUNNING AT 800 UNITS/HR. TELE MONITOR-AFIB. ALL SAFETY MEASURES IN PLACE: BED AT LOWEST LOCKED POSITION, RAILS UP X2, CALL DUENAS WITHIN REACH. DUE MEDS GIVEN, NEEDS ATTENDED.
--- NOTE | 2021-08-29 19:38 | NUR ---
RN OPENING NOTES RECEIVED PATIENT IN BED, AWAKE, A/O X 1-2 WITH CONFUSION AND VERBALLY RESPONSIVE. NO SOB NOTED. BREATHING EVEN AND UNLABORED. ON 2L VIA N/C, PT AFIB ON THE MONITOR, IV ACCESS ON ELTON MIDLINE INTACT AND PATENT. ON HEPARIN INFUSING AT 800 UNITS PER HR. NO C/O PAIN OR DISCOMFORT. NO ACUTE DISTRESS. ALL SAFETY MEASURES IN PLACE. BED ALARM IS ON. HOB ELEVATED. BED IS IN LOWEST POSITION AND LOCKED. SIDE RAILS UP X2, PLACE CALL LIGHT WITHIN REACH. WILL CONTINUE TO MONITOR.
[2021-08-29 20:00] VITALS: BP 118/69
[2021-08-29] MEDS: MIRTAZAPINE 15 MG TABLET PO SCH (21:47)
[2021-08-29] MEDS: ATORVASTATIN 10 MG TABLET PO SCH (21:47)
[2021-08-29] MEDS: QUETIAPINE FUMARATE 25 MG TABLET PO SCH (21:48)
[2021-08-29] MEDS: INSULIN REGULAR, HUMAN 100 UNIT/ML 3 ML VIAL SQ PRN (22:05)
--- NOTE | 2021-08-29 23:39 | NUR ---
RN NOTES: RECEIVED LAB RESULT. PT'S APTT-56.6. NO NEED TO CHANGE THE UNITS. WILL CONTINUE WITH THE SAME DOSE. NEW APTT WILL BE DONE AT 0500 IN THE MORNING. WILL CONTINUE TO MONITOR
[2021-08-30] VITALS: BP 139/69
[2021-08-30] MEDS: HEPARIN INFUSION/D5W 500 ML IV PRN (00:25)
[2021-08-30] MEDS: LORAZEPAM INJ 2 MG/ML VIAL IV PRN (02:36)
--- NOTE | 2021-08-30 02:45 | NUR ---
RN NOTES: PT SHOWS SEVERE ANXIETY AND RESTLESSNESS. ATIVAN 0.5MG/0.25ML GIVEN. PT TOLERATED WELL. WILL CONTINUE TO MONITOR
[2021-08-30 04:00] VITALS: BP 142/83
[2021-08-30] MEDS: hydrALAZINE HCL 10 MG TABLET PO SCH ×3 (05:50→21:06)
[2021-08-30 05:58] LABS: BASOPHILS % (AUTO) 0.5 % (0.0-2.0); EOSINOPHILS % (AUTO) 3.4 % (0.0-6.0); HEMATOCRIT 34 % (33-45); HEMOGLOBIN 11.5 g/dL (11.5-14.8); LYMPHOCYTES # (AUTO) 1.6 K/uL (0.8-4.8); LYMPHOCYTES % (AUTO) 27.8 % (20.0-44.0); MEAN CORPUSCULAR HGB CONC 33 g/dl (31.0-36.0); MEAN CORPUSCULAR VOLUME 100 fL (82-100); MONOCYTES # (AUTO) 0.6 K/uL (0.1-1.30); NEUTROPHILS # (AUTO) 3.3 K/uL (1.8-8.9); NEUTROPHILS % (AUTO) 58.3 % (43.0-81.0); PLATELET COUNT (AUTO) 110 K/uL (150-450); RED BLOOD CELL COUNT(AUTO) 3.46 MIL/uL (4.0-5.2); WHITE BLOOD COUNT (AUTO) 5.6 K/uL (4.3-11.0)
[2021-08-30 06:47] LABS: ALBUMIN 2.6 g/dL (3.4-5.0); ALKALINE PHOSPHATASE 73 U/L (46-116); ASPARTATE AMINOTRANSFERASE 5 U/L (15-37); BILIRUBIN,TOTAL 0.4 mg/dL (0.2-1.0); CALCIUM, SERUM 8.3 mg/dL (8.5-10.1); CARBON DIOXIDE 23 mmol/L (21-32); CHLORIDE 109 mmol/L (98-107); CREATININE 1.4 mg/dL (0.6-1.3); GLUCOSE 179 mg/dL (74-106); MAGNESIUM 2.3 mg/dL (1.8-2.4); PHOSPHORUS 4.8 mg/dL (2.5-4.9); POTASSIUM 4.4 mmol/L (3.5-5.1); SODIUM SERUM 140 mmol/L (136-145); TOTAL PROTEIN, SERUM 7.2 g/dL (6.4-8.2); UREA NITROGEN, BLOOD 35 mg/dL (7-18)
--- NOTE | 2021-08-30 06:47 | NUR ---
RN CLOSING NOTES PATIENT IN BED, AWAKE, A/O X 1-2 WITH CONFUSION AND VERBALLY RESPONSIVE. NO SOB NOTED. BREATHING EVEN AND UNLABORED. ON 2L VIA N/C,100% PT AFIB WITH PVC ON THE MONITOR, IV ACCESS ON ELTON MIDLINE INTACT AND PATENT. CONTINUE ON HEPARIN INFUSING AT 800 UNITS PER HR. NO C/O PAIN OR DISCOMFORT. NO ACUTE DISTRESS. ALL DUE MEDS GIVEN ORDER. ALL SAFETY MEASURES IN PLACE. BED ALARM IS ON. HOB ELEVATED. BED IS IN LOWEST POSITION AND LOCKED. SIDE RAILS UP X2, PLACE CALL LIGHT WITHIN REACH. WILL ENDORSE TO MORNING SHIFT NURSE.
[2021-08-30 07:02] LABS: ALANINE AMINOTRANSFERASE 15 U/L (12-78)
--- NOTE | 2021-08-30 07:30 | NUR ---
PT RECEIVED RESTING COMFORTABLY IN BED. NO S/S OR C/O PAIN OR DISTRESS NOTED. SIDE RAILS UP X2, CALL LIGHT LEFT WITHIN REACH. WILL CONTINUE PLAN OF CARE.
[2021-08-30 08:00] VITALS: BP 147/75
[2021-08-30] MEDS: METOPROLOL TARTRATE 25 MG TABLET PO SCH ×3 (08:26→17:48)
[2021-08-30] MEDS: DOCUSATE SODIUM 100 MG CAPSULE PO SCH ×2 (08:26→17:47)
[2021-08-30] MEDS: FOLIC ACID 1 MG TABLET PO SCH (08:27)
[2021-08-30] MEDS: QUETIAPINE FUMARATE 25 MG TABLET PO SCH ×2 (08:27→21:01)
[2021-08-30] MEDS: FUROSEMIDE 20 MG/2 ML VIAL IV SCH (08:27)
[2021-08-30] MEDS: GLUCERNA SHAKE 237 ML CAN PO SCH ×3 (08:32→17:47)
[2021-08-30] MEDS: BLOOD SUGAR DIAGNOSTIC 1 EACH STRIP IN SCH ×4 (08:32→21:14)
[2021-08-30] MEDS: Z GUARD REMEDY 4 OZ OINT TP SCH (08:32)
[2021-08-30] MEDS: GUAIFENESIN LA 600 MG TABLET.SA PO PRN (09:49)
[2021-08-30] MEDS: INSULIN REGULAR, HUMAN 100 UNIT/ML 3 ML VIAL SQ PRN ×4 (10:00→21:16)
[2021-08-30] MEDS: ACETAMINOPHEN 325 MG TABLET PO PRN (11:37)
[2021-08-30] MEDS: APIXABAN 2.5 MG TABLET PO SCH ×2 (11:46→20:53)
[2021-08-30 12:00] VITALS: BP 138/75
[2021-08-30 16:00] VITALS: BP 151/74
[2021-08-30 20:00] VITALS: BP 152/78
[2021-08-30] MEDS: ATORVASTATIN 10 MG TABLET PO SCH (21:00)
[2021-08-30] MEDS: MIRTAZAPINE 15 MG TABLET PO SCH (21:00)
[2021-08-31] VITALS: BP 139/75
[2021-08-31 04:00] VITALS: BP 135/78
[2021-08-31] MEDS: hydrALAZINE HCL 10 MG TABLET PO SCH ×2 (05:13→12:27)
--- NOTE | 2021-08-31 06:25 | NUR ---
RN CLOSING NOTES, PATIENT IN BED, ASLEEP AT THIS TIME, NO SOB NOTED/ ACUTE DISTRESS NOTED THROUGHOUT T THE NIGHT, ON 2L WITH OPTIMAL O2 SAT LEVEL, CONT AFIB CONTROLLED IN TELE MONITOR S/P HEPAIN DRIP NOW IN ELIQUIS PO, ALL SAFETY MEASURES IN PLACE, BED ALARM IS ON, HOB ELEVATED, BED LOCKED AND IN LOWEST POSITION, SIDE RAILS UP X2, CALL LIGHT WITHIN REACH, WILL ENDORSE CONTINUITY OF CARE TO ONCOMING NURSE.
[2021-08-31] MEDS: BLOOD SUGAR DIAGNOSTIC 1 EACH STRIP IN SCH ×3 (07:35→17:11)
--- NOTE | 2021-08-31 07:40 | NUR ---
LINOLEUM LAYER OPENING NOTES RECEIVED PATIENT IN BED, ASLEEP AT THIS TIME BUT EASILY AWAKEN. PATIENT ON OXYGEN THERAPY AT 2 LPM VIA NASAL CANNULA; NO SOB NOTED. TELE MONITOR WITH A CURRENT READING OF CONT AFIB. ELTON MIDLINE PRESENT AND INTACT. SAFETY PRECAUTIONS IN PLACE; BED IN LOW POSITION AND LOCKED, RAILS UP X2, CALL LIGHT WITHIN REACH. WILL CONTINUE TO MONITOR PATIENT.
[2021-08-31] MEDS: INSULIN REGULAR, HUMAN 100 UNIT/ML 3 ML VIAL SQ PRN ×2 (07:56→11:35)
[2021-08-31] MEDS: FOLIC ACID 1 MG TABLET PO SCH (08:02)
[2021-08-31] MEDS: DOCUSATE SODIUM 100 MG CAPSULE PO SCH ×2 (08:02→16:31)
[2021-08-31] MEDS: QUETIAPINE FUMARATE 25 MG TABLET PO SCH (08:02)
[2021-08-31] MEDS: METOPROLOL TARTRATE 25 MG TABLET PO SCH ×3 (08:03→16:32)
[2021-08-31] MEDS: APIXABAN 2.5 MG TABLET PO SCH (08:04)
[2021-08-31] MEDS: Z GUARD REMEDY 4 OZ OINT TP SCH (08:09)
[2021-08-31] MEDS: GLUCERNA SHAKE 237 ML CAN PO SCH ×3 (08:10→16:33)
[2021-08-31 09:00] VITALS: BP 134/96
[2021-08-31 12:06] VITALS: BP 133/80
[2021-08-31 16:56] VITALS: BP 146/80
--- NOTE | 2021-08-31 18:15 | NUR ---
NIB FINISHERGOLF BALL INSPECTOR NOTES PATIENT DISCHARGED BACK TO SNF IN MEDICALLY STABLE CONDITION. ALL DISCHARGE PAPERWORK READY AND SIGNED B 2 RNs SINCE PATIENT IS A/O X1 AND NOT ABLE TO SIGN. PATIENT HAD NO BELONGINGS. PATIENT REFUSED TO TAKE PICTURE. IV ACCESS REMOVED. DUFFY REMAINED IN PLACE. FACILITY CALLED AND REPORT GIVEN TO NURSE BECKETT. PATIENT PICKED UP BY 2 [employer] worker VIA JURGEN.
== END 2021-08-31 17:41 | DRG 871 ==
LOC: ER 13:17 → TELE1 21:35
PROVIDERS: ADMIT Nurse Practitioner Acute Care
PROC: 05HD33Z Insertion of Infusion Device into Right Cephalic Vein, Percutaneous Approach (ICD-10-PCS; principal; 2021-08-24)
DX: A41.9 Sepsis, unspecified organism (principal); N17.0 Acute kidney failure with tubular necrosis; R53.2 Functional quadriplegia; I50.23 Acute on chronic systolic (congestive) heart failure; I21.A1 Myocardial infarction type 2; N39.0 Urinary tract infection, site not specified; E44.1 Mild protein-calorie malnutrition; I13.0 Hypertensive heart and chronic kidney disease with heart failure and stage 1 through stage 4 chronic kidney disease, or unspecified chronic kidney disease; G93.49 Other encephalopathy; I69.351 Hemiplegia and hemiparesis following cerebral infarction affecting right dominant side; E87.2 Acidosis; I42.9 Cardiomyopathy, unspecified; Z66 Do not resuscitate; E11.22 Type 2 diabetes mellitus with diabetic chronic kidney disease; E11.65 Type 2 diabetes mellitus with hyperglycemia; E78.5 Hyperlipidemia, unspecified; I25.10 Atherosclerotic heart disease of native coronary artery without angina pectoris; K21.9 Gastro-esophageal reflux disease without esophagitis; N18.32 Chronic kidney disease, stage 3b; F31.9 Bipolar disorder, unspecified; Z79.4 Long term (current) use of insulin; Z79.84 Long term (current) use of oral hypoglycemic drugs; Z79.899 Other long term (current) drug therapy; H74.8X9 Other specified disorders of middle ear and mastoid, unspecified ear; I34.0 Nonrheumatic mitral (valve) insufficiency; L89.156 Pressure-induced deep tissue damage of sacral region; E88.09 Other disorders of plasma-protein metabolism, not elsewhere classified; E86.0 Dehydration; I48.0 Paroxysmal atrial fibrillation; B96.20 Unspecified Escherichia coli [E. coli] as the cause of diseases classified elsewhere
CPT/HCPCS: 36410; 36415; 70450-TC; 71045-TC; 80048-TC; 80053-TC; 80061-TC; 80076-TC; 80162-TC; 81001; 82010-TC; 82140-TC; 82962-TC; 83605-TC; 83735-TC; 83880; 84100-TC; 84443-TC; 84484-TC; 85025-TC; 85610-TC; 85730-TC; 87040-TC; 87081-TC; 87086-TC; 87186-TC; 93307-TC; 97110-TC; 97112-TC; 97530-TC; C9803; G0378; G0480; J0692; J0696; J1644; J1815; J1940; J2060; J3370; J3490; J7030; J7060

== ENCOUNTER 2021-09-04 22:38 | Inpatient (IN) | payer MEDICARE, OTHER ==
[~2021-09-04] VITALS: Ht 160 cm; Wt 69.9 kg
[~2021-09-04 22:38] MED LIST: ATOR10TA PO; CARV25TA2 PO; DIGO125T PO; FOLI0.4T6 PO; FURO40TA5 PO; GLIP5TAB13 PO; INSU100I40 SQ; MIRT-90 PO; PANT40TA49 PO; QUET25TA PO; TAMS-12 PO
--- NOTE | 2021-09-04 23:12 | NUR ---
INARA 60 FROM SNF C/O AMS, BS 500+ PATROL JUDGE. PATIENT IS A/O TO TOUCH , RR LABORED, ON NONREBREATHER PATROL JUDGE. PATIENT CONNECTED TO MONITORS.
--- NOTE | 2021-09-04 23:12 | NUR ---
GROUNDSKEEPER SUPERVISOR F/C INTACT; PATENT AND INTACT
--- NOTE | 2021-09-04 23:13 | NUR ---
POLST: DNR / SELECTIVE TX
--- NOTE | 2021-09-04 23:28 | NUR ---
PT TAKEN TO CT VIA JURGEN
--- NOTE | 2021-09-05 00:08 | NUR ---
L HAND #20G S/L PATENT AND INTACT. BLOOD AND URINE COLLECTED AND GIVEN TO LAB
[2021-09-05 00:33] LABS: BILIRUBIN,URINE NEGATIVE (NEGATIVE); COLOR,URINE YELLOW (YELLOW); LEUKOCYTE ESTERASE ,URINE NEGATIVE (NEGATIVE); NITRITE, URINE NEGATIVE (NEGATIVE); PROTEIN,URINE 100 mg/dl (NEGATIVE); UGLUCOSE NEGATIVE (NEGATIVE); UROBILINOGEN,URINE 0.2 EU/dL (0.2)
[2021-09-05 00:35] LABS: BASOPHILS % (AUTO) 0.4 % (0.0-2.0); HEMATOCRIT 35 % (33-45); HEMOGLOBIN 11.3 g/dL (11.5-14.8); LYMPHOCYTES # (AUTO) 0.7 K/uL (0.8-4.8); LYMPHOCYTES % (AUTO) 7.9 % (20.0-44.0); MEAN CORPUSCULAR HGB CONC 32 g/dl (31.0-36.0); MEAN CORPUSCULAR VOLUME 104 fL (82-100); MONOCYTES # (AUTO) 0.6 K/uL (0.1-1.30); MONOCYTES % (AUTO) 7.3 % (2.0-12.0); NEUTROPHILS # (AUTO) 7.4 K/uL (1.8-8.9); NEUTROPHILS % (AUTO) 83.4 % (43.0-81.0); PLATELET COUNT (AUTO) 131 K/uL (150-450); RED BLOOD CELL COUNT(AUTO) 3.39 MIL/uL (4.0-5.2); WHITE BLOOD COUNT (AUTO) 8.9 K/uL (4.3-11.0)
[2021-09-05 02:39] LABS: ALANINE AMINOTRANSFERASE 18 U/L (12-78); ALBUMIN 2.8 g/dL (3.4-5.0); ALKALINE PHOSPHATASE 98 U/L (46-116); ASPARTATE AMINOTRANSFERASE 15 U/L (15-37); BILIRUBIN,DIRECT 0.1 mg/dL (0.0-0.2); BILIRUBIN,TOTAL 0.3 mg/dL (0.2-1.0); CALCIUM, SERUM 8.4 mg/dL (8.5-10.1); CARBON DIOXIDE 26 mmol/L (21-32); CHLORIDE 109 mmol/L (98-107); CREATININE 1.4 mg/dL (0.6-1.3); GLUCOSE 285 mg/dL (74-106); SODIUM SERUM 141 mmol/L (136-145); TOTAL PROTEIN, SERUM 7.5 g/dL (6.4-8.2); UREA NITROGEN, BLOOD 54 mg/dL (7-18)
--- NOTE | 2021-09-05 03:16 | NUR ---
Astrid valles in [facility] - 09/05/21 at 0316 by ELISSA URINE COLLECTED AND SENT TO LAB
--- NOTE | 2021-09-05 03:16 | NUR ---
COVID ANTIGEN SWAB COLLECTED AND SENT TO LAB
[2021-09-05] MEDS ORDERED: ONDANSETRON HCL/PF 4 MG/2 ML VIAL IVP PRN (04:00)
[2021-09-05] MEDS ORDERED: MAGNESIUM HYDROXIDE 30 ML UDC PO PRN ×2 (04:00→08:30)
[2021-09-05] MEDS ORDERED: Z GUARD REMEDY 4 OZ OINT TP PRN (04:00)
[2021-09-05] MEDS ORDERED: INSULIN REGULAR, HUMAN 100 UNIT/ML 3 ML VIAL SQ PRN (04:00)
[2021-09-05] MEDS ORDERED: HYDROCODONE/APAP 5/325MG TABLET PO PRN (04:00)
[2021-09-05] MEDS ORDERED: MAG HYDROX/AL HYDROX/SIMETH 30 ML UDC PO PRN (04:00)
[2021-09-05] MEDS ORDERED: DEXTROSE 50%-WATER 50 ML DISP.SYRIN IV PRN ×2 (04:00→08:30)
[2021-09-05] MEDS ORDERED: INSU100V39 SQ (04:14)
[2021-09-05] MEDS ORDERED: HYDR-4075 PO (04:14)
[2021-09-05] MEDS ORDERED: METO25TA6 PO (04:14)
[2021-09-05] MEDS ORDERED: MIRT-90 PO (04:14)
[2021-09-05] MEDS ORDERED: DOCU100C36 PO (04:14)
[2021-09-05] MEDS ORDERED: APIX2.5T PO (04:14)
--- NOTE | 2021-09-05 05:39 | NUR ---
ASSIGNED TO 325
--- NOTE | 2021-09-05 06:25 | NUR ---
REPORT GIVEN TO CHARGE NURSE
--- NOTE | 2021-09-05 06:49 | NUR ---
PATIENT TRANSFERRED UNDER ACLS.
[2021-09-05] MEDS: PANTOPRAZOLE 40 MG TABLET.DR PO SCH (07:30)
[2021-09-05] MEDS ORDERED: BLOOD SUGAR DIAGNOSTIC 1 EACH STRIP IN SCH (07:30)
--- NOTE | 2021-09-05 07:40 | NUR ---
DIGESTION OPERATORNUCLEAR REACTOR OPERATOR NOTES RECEIVED PATIENT WITH STABLE VITALS. REPORT RECEIVED FROM CHARGE NURSE. A/O X2 LETHARGIC AND SLEEPY. NO S/SX OF DISTRESS NOTED. NO C/O PAIN. BREATHING IS EVEN AND UNLABORED ON 4L O2 SUPPLEMENTATION VIA NASAL CANNULA SATURATING AT 97%. IV ACCESS LEF HAND#22 AND LEFT IJ#20 PATENT AND INTACT. CALL LIGHT IS WITHIN REACH. OBTAINED ORDERS FROM ADMITTING DOCTOR. ORDERS CARRIED OUT. WILL CONTINUE TO MONITOR PT THROUGHOUT SHIFT.
[2021-09-05] MEDS ORDERED: AMIN30LI2 PO (07:57)
[2021-09-05] MEDS ORDERED: MAGN400O6 PO (07:57)
[2021-09-05] MEDS ORDERED: CRAN425C6 PO (07:57)
[2021-09-05] MEDS ORDERED: NA P133E RC (07:57)
[2021-09-05] MEDS ORDERED: ASCO-352 PO (07:57)
[2021-09-05] MEDS ORDERED: MULT-447 PO (07:57)
[2021-09-05] MEDS ORDERED: ACET-868 PO (07:57)
[2021-09-05] MEDS ORDERED: SENN-261 PO (07:57)
[2021-09-05] MEDS ORDERED: POLY15DR40 EACHEYE (07:57)
[2021-09-05] MEDS ORDERED: QUET100T PO (07:57)
[2021-09-05] MEDS ORDERED: QUETIAPINE FUMARATE 100 MG TABLET PO PRN (08:30)
[2021-09-05] MEDS ORDERED: NA PHOS,M-B/NA PHOS,DI-BA 1 EA ENEMA RC PRN (08:30)
[2021-09-05] MEDS: ASCORBIC ACID 500 MG TABLET PO SCH (08:51)
[2021-09-05] MEDS: BLOOD SUGAR DIAGNOSTIC 1 EACH STRIP VI SCH ×4 (08:51→22:00)
[2021-09-05] MEDS: QUETIAPINE FUMARATE 25 MG TABLET PO SCH ×2 (08:52→16:48)
[2021-09-05] MEDS: AMLODIPINE BESYLATE 10 MG TABLET PO SCH ×2 (08:54→08:56)
[2021-09-05] MEDS: APIXABAN 2.5 MG TABLET PO SCH ×2 (08:55→16:48)
[2021-09-05] MEDS: DOCUSATE SODIUM 100 MG CAPSULE PO SCH ×2 (08:55→16:48)
[2021-09-05] MEDS ORDERED: FUROSEMIDE 40 MG TABLET PO SCH (09:00)
[2021-09-05] MEDS ORDERED: ENOXAPARIN SODIUM 30 MG/0.3 ML DISP.SYRIN SQ SCH (09:00)
[2021-09-05] MEDS: INSULIN REGULAR, HUMAN 100 UNIT/ML 3 ML VIAL SQ PRN ×3 (09:00→17:09)
[2021-09-05] MEDS ORDERED: FUROSEMIDE 40 MG/4 ML VIAL IV SCH (10:30)
[2021-09-05] MEDS ORDERED: CEFEPIME 2 GM in IV D5W 100 ML IV SCH (12:00)
--- NOTE | 2021-09-05 12:00 | NUR ---
RN NOTE RECEIVED ORDER FOR US GUIDED THROACENTESIS. CONSENT OBTAINED BY SISTER,, ANIYA AT BEDSIDE AND VERBAL CONSENT OBTAINED FROM SON, DR. ADAMES WITH ELVIN ARNOLD WITNESS. PER IR RADIOLOGIST, THORACENTESIS HELD FOR 24HOURS D/T PATIENT TAKING ELIQUIS. DR. CHAUDHRY MADE AWARE AND CHARGE NURSE MADE AWARE.
--- NOTE | 2021-09-05 12:17 | NUR ---
Spoken to the call interventional radiologist and said that the U/S guided thoracentesis will be put on hold for around 24 hours due to blood thinner Eliquis administered today @ 9 am.
[2021-09-05] MEDS: METOPROLOL TARTRATE 25 MG TABLET PO SCH ×2 (13:45→21:00)
[2021-09-05] MEDS: DIGOXIN 0.125 MG TABLET PO SCH (13:45)
[2021-09-05] MEDS: ACETAMINOPHEN 325 MG TABLET PO PRN ×2 (15:04→22:10)
[2021-09-05] MEDS: SPIRONOLACTONE 25 MG TABLET PO SCH (15:46)
[2021-09-05] MEDS: ENSURE ENLIVE 237 ML LIQUID (VANILLA) PO SCH (16:48)
--- NOTE | 2021-09-05 18:56 | NUR ---
PICK UP OPERATOR CLOSING NOTES PATIENT WITH STABLE VITALS. REPORT RECEIVED FROM CHARGE NURSE. A/O X2 LETHARGIC AND SLEEPY. NO S/SX OF DISTRESS NOTED. NO C/O PAIN. BREATHING IS EVEN AND UNLABORED ON 4L O2 SUPPLEMENTATION VIA NASAL CANNULA SATURATING AT 97%. IV ACCESS LEF HAND#22 AND LEFT IJ#20 PATENT AND INTACT. PT WITH EXTERNAL MONITOR READING AFIB CONTROLLED HR77. CALL LIGHT IS WITHIN REACH. SAFETY MEASURES IN PLACE WITH BED LOCK AND LOW POSITION. SIDE RAILS UP X 2. WILL ENDORSE CONTINUITY OF CARE TO ONCOMING SHIFT.
--- NOTE | 2021-09-05 19:45 | NUR ---
CLINICAL STAFF EDUCATOR OPENING NOTES RECEIVED PATIENT LAYING AWAKE IN BED. A/O X4. PATIENT WITH REGULAR AND UNLABORED BREATHING ON 4 LPM VIA NASAL CANULA TOLERATED WELL. NO SIGNS AND SYMPTOMS OF DISTRESS NOTED AT THIS TIME. NO COMPLAINS OF PAIN OR DISCOMFORT AT THIS TIME. PATIENT ON TELE MONITOR READING CONTROLLED AFIB @ 84 BPM. IV ACCESSES LIJ G #20 SL AND L HAND G #22 SL. IV ACCESSES INTACT AND PATENT. SAFETY PRECAUTIONS ENFORCED WITH BED LOCKED AND AT LOWEST POSITION. CALL LIGHT WITHIN REACH AT ALL TIMES. WILL CONTINUE TO MONITOR PATIENT.
[2021-09-05 20:35] VITALS: BP 107/54
--- NOTE | 2021-09-05 21:00 | NUR ---
SENIOR REGULATORY AFFAIRS SPECIALIST NOTES METOPROLOL HELD DUE TO LOW BP OF 107/54. WILL CONTINUE TO MONITOR PATIENT.
[2021-09-05] MEDS: ATORVASTATIN 10 MG TABLET PO SCH ×2 (21:18→21:57)
[2021-09-05] MEDS: TAMSULOSIN 0.4 MG CAP.SR.24H PO SCH ×2 (21:18→21:57)
[2021-09-05] MEDS: MIRTAZAPINE 15 MG TABLET PO SCH ×2 (21:18→21:57)
--- NOTE | 2021-09-05 21:45 | NUR ---
LAB INTERN NOTES PATIENT REFUSED MEDICATION. MEDICATION WAS ALREADY OPENED. WASTED MEDICATION WITH CHARGE NURSE. WILL CONTINUE TO MONITOR PATIENT.
--- NOTE | 2021-09-05 22:15 | NUR ---
SUGAR REFINERY SUPERVISOR NOTES PATIENT COMPLAINED OF PAIN ADMINISTERED ACETAMINOPHEN ORDERED BY HOSPITALIST. WILL CONTINUE TO MONITOR PATIENT.
[2021-09-06 00:06] VITALS: BP 132/44
[2021-09-06 04:24] VITALS: BP 132/55
[2021-09-06] MEDS: METOPROLOL TARTRATE 25 MG TABLET PO SCH ×3 (05:00→21:08)
--- NOTE | 2021-09-06 05:00 | NUR ---
CHASER HELPER NOTES PATIENT REFUSED METOPROLOL. EXPLAINED RISKS AND BENEFITS. PATIENT STILL REFUSED. WILL CONTINUE TO MONITOR PATIENT.
[2021-09-06] MEDS: BLOOD SUGAR DIAGNOSTIC 1 EACH STRIP VI SCH ×4 (06:32→21:45)
[2021-09-06] MEDS: INSULIN REGULAR, HUMAN 100 UNIT/ML 3 ML VIAL SQ PRN ×3 (06:38→18:27)
--- NOTE | 2021-09-06 06:52 | NUR ---
SOCIAL WORKER PSYCHIATRIC CLOSING NOTES PATIENT STILL LAYING AWAKE IN BED. A/O X4. PATIENT WITH REGULAR AND UNLABORED BREATHING ON 4 LPM VIA NASAL CANULA TOLERATED WELL. NO SIGNS AND SYMPTOMS OF DISTRESS NOTED AT THIS TIME. NO COMPLAINS OF PAIN OR DISCOMFORT AT THIS TIME. PATIENT ON TELE MONITOR READING CONTROLLED AFIB @ 93 BPM. IV ACCESSES LIJ G #20 SL AND L HAND G #22 SL. IV ACCESSES INTACT AND PATENT. SAFETY PRECAUTIONS ENFORCED WITH BED LOCKED AND AT LOWEST POSITION. CALL LIGHT WITHIN REACH AT ALL TIMES. WILL ENDORSE CONTINUITY OF CARE TO DAY SHIFT NURSE.
--- NOTE | 2021-09-06 07:28 | NUR ---
ORTHOPHOTO TECH/DRAFTSMAN OPENING NOTES PATIENT STILL LAYING AWAKE IN BED. A/O X4. PATIENT WITH REGULAR AND UNLABORED BREATHING ON 4 LPM VIA NASAL CANULA TOLERATED WELL. NO SIGNS AND SYMPTOMS OF DISTRESS NOTED AT THIS TIME. NO COMPLAINS OF PAIN OR DISCOMFORT AT THIS TIME. PATIENT ON TELE MONITOR READING CONTROLLED AFIB @ 87 BPM. IV ACCESSES LIJ G #20 SL AND L HAND G #22 SL. IV ACCESSES INTACT AND PATENT. SAFETY PRECAUTIONS ENFORCED WITH BED LOCKED AND AT LOWEST POSITION, SIDE RAILS UP X 2, CALL LIGHT WITHIN REACH AT ALL TIMES. WILL CONTINUE TO MONITOR.
[2021-09-06] MEDS ORDERED: PANTOPRAZOLE 40 MG TABLET.DR PO SCH (07:30)
[2021-09-06] MEDS: PANTOPRAZOLE 40 MG TABLET.DR PO SCH (07:38)
[2021-09-06 08:00] VITALS: BP 158/72
[2021-09-06 08:07] LABS: BASOPHILS % (AUTO) 0.2 % (0.0-2.0); EOSINOPHILS % (AUTO) 1.2 % (0.0-6.0); HEMATOCRIT 33 % (33-45); HEMOGLOBIN 10.6 g/dL (11.5-14.8); LYMPHOCYTES # (AUTO) 0.9 K/uL (0.8-4.8); LYMPHOCYTES % (AUTO) 9.9 % (20.0-44.0); MEAN CORPUSCULAR HGB CONC 33 g/dl (31.0-36.0); MEAN CORPUSCULAR VOLUME 102 fL (82-100); MONOCYTES # (AUTO) 0.6 K/uL (0.1-1.30); MONOCYTES % (AUTO) 6.9 % (2.0-12.0); NEUTROPHILS # (AUTO) 7.5 K/uL (1.8-8.9); NEUTROPHILS % (AUTO) 81.8 % (43.0-81.0); PLATELET COUNT (AUTO) 77 K/uL (150-450); RED BLOOD CELL COUNT(AUTO) 3.18 MIL/uL (4.0-5.2); WHITE BLOOD COUNT (AUTO) 9.2 K/uL (4.3-11.0)
[2021-09-06] MEDS: SPIRONOLACTONE 25 MG TABLET PO SCH (08:21)
[2021-09-06] MEDS: ASCORBIC ACID 500 MG TABLET PO SCH (08:21)
[2021-09-06] MEDS: AMLODIPINE BESYLATE 10 MG TABLET PO SCH (08:22)
[2021-09-06] MEDS: QUETIAPINE FUMARATE 25 MG TABLET PO SCH ×2 (08:22→17:07)
[2021-09-06] MEDS: DOCUSATE SODIUM 100 MG CAPSULE PO SCH ×2 (08:22→17:08)
[2021-09-06] MEDS: FUROSEMIDE 40 MG/4 ML VIAL IV SCH (08:23)
[2021-09-06 08:29] LABS: CALCIUM, SERUM 8.2 mg/dL (8.5-10.1); CARBON DIOXIDE 26 mmol/L (21-32); CHLORIDE 108 mmol/L (98-107); CREATININE 1.4 mg/dL (0.6-1.3); GLUCOSE 176 mg/dL (74-106); MAGNESIUM 2.5 mg/dL (1.8-2.4); PHOSPHORUS 4.8 mg/dL (2.5-4.9); POTASSIUM 5.5 mmol/L (3.5-5.1); SODIUM SERUM 138 mmol/L (136-145); UREA NITROGEN, BLOOD 53 mg/dL (7-18)
[2021-09-06] MEDS: APIXABAN 2.5 MG TABLET PO SCH ×2 (08:47→17:00)
[2021-09-06] MEDS: ENSURE ENLIVE 237 ML LIQUID (VANILLA) PO SCH (08:48)
[2021-09-06] MEDS ORDERED: ZOSYN IVPB 3.375 G in IV D5W 50ml IV ONE (09:00)
[2021-09-06 10:22] LABS: BAND % (MANUAL) 2 % (0.0-5.0); LYMPHOCYTES % (MANUAL) 8 % (16-48); MONOCYTES % (MANUAL) 4 % (0-11.0); NEUTROPHILS % (MANUAL) 86 (42-76)
[2021-09-06 12:00] VITALS: BP 108/48
[2021-09-06] MEDS: DIGOXIN 0.125 MG TABLET PO SCH (13:02)
--- NOTE | 2021-09-06 14:50 | NUR ---
LIGHT CLEANER NOTES SPOKE WITH PHARMACY WHO CONFIRMED PATIENT CAN RECEIVE SECOND DOSE OF 50 ML IV ZOSYN TODAY. WILL ADMINISTER ORDERED.
[2021-09-06] MEDS: ZOSYN IVPB 3.375 G in IV D5W 50ml IV SCH ×2 (14:54→21:29)
[2021-09-06 16:00] VITALS: BP 109/56
[2021-09-06] MEDS: GLUCERNA SHAKE 237 ML CAN PO SCH (18:01)
--- NOTE | 2021-09-06 19:21 | NUR ---
MUSEUM EDUCATOR CLOSING NOTES PATIENT A/O X4 WITH REGULAR AND UNLABORED BREATHING ON 4 LPM VIA NASAL CANULA. NO SIGNS AND SYMPTOMS OF DISTRESS NOTED AT THIS TIME. NO COMPLAINS OF PAIN OR DISCOMFORT AT THIS TIME. PATIENT ON TELE MONITOR READING AFIB 90. IV ACCESSES LIJ G #20 SL IV ACCESSES INTACT AND PATENT. SAFETY PRECAUTIONS ENFORCED WITH BED LOCKED AND AT LOWEST POSITION, SIDE RAILS UP X 2, CALL LIGHT WITHIN REACH AT ALL TIMES. WILL ENDORSE TO MOLDER APPRENTICE FOR MOHSEN.
--- NOTE | 2021-09-06 19:35 | NUR ---
HEAVY TRUCK MECHANIC OPENING NOTES PATIENT A/O X1-2 WITH REGULAR AND UNLABORED BREATHING ON 4 LPM VIA NASAL CANULA. NO SIGNS AND SYMPTOMS OF DISTRESS NOTED AT THIS TIME. NO COMPLAINS OF PAIN OR DISCOMFORT AT THIS TIME. PATIENT ON TELE MONITOR READING AFIB 902. IV ACCESSES LIJ G #20 SL IV ACCESSES INTACT AND PATENT NOTED PT WITH INFILTRATED ACCES ON THE LEFT HAND TAKEN OUT NEW ACCESS ON THE RIGHT HAND 24G PATENT INTACT.. SAFETY PRECAUTIONS ENFORCED WITH BED LOCKED AND AT LOWEST POSITION, SIDE RAILS UP X 2, CALL LIGHT WITHIN REACH AT ALL TIMES. WILL CONTINUE TO MONITOR.
[2021-09-06 20:00] VITALS: BP 129/67
[2021-09-06] MEDS: MIRTAZAPINE 15 MG TABLET PO SCH (21:08)
[2021-09-06] MEDS: TAMSULOSIN 0.4 MG CAP.SR.24H PO SCH (21:08)
[2021-09-06] MEDS: ATORVASTATIN 10 MG TABLET PO SCH (21:08)
[2021-09-06] MEDS: SODIUM POLYSTYRENE SULFONATE 15 G/60 ML BOTTLE PO ONE ×2 (21:30→23:12)
[2021-09-06] MEDS: *INSULIN REGULAR(HUMULIN R)HUM 100 UNIT/ML VIAL SQ PRN (21:48)
--- NOTE | 2021-09-06 22:04 | NUR ---
QUALITY ENGINEER MEDICAL DEVICE NOTES NOTES PT WITH HIGH POTASSIUM INFORMED DR MANNY CORNELIUS ORDERED KAYEXALATE 30G ORDER PRINTED SENT TO NURSING AIRPORT MANAGER AND CONFIRMED BY CALL THAT SHE RECEIVED IT. WILL CONTINUE TO MONITOR.
--- NOTE | 2021-09-06 22:35 | NUR ---
DISTRIBUTION CLERK NOTES PT REFUSED KAYEXALATE SHE SIP OUT MOST OF IT. WILL CONTINUE TO MONITOR.
[2021-09-06] MEDS ORDERED: SODIUM POLYSTYRENE SULFONATE 15 G/60 ML BOTTLE ONE (22:54)
[2021-09-07] VITALS: BP 137/96
[2021-09-07] MEDS: ZOSYN IVPB 3.375 G in IV D5W 50ml IV SCH ×4 (03:05→21:06)
[2021-09-07 04:00] VITALS: BP 128/56
[2021-09-07] MEDS: METOPROLOL TARTRATE 25 MG TABLET PO SCH ×3 (05:00→21:06)
--- NOTE | 2021-09-07 06:35 | NUR ---
APPLICATION ASSISTANT CLOSING NOTES PATIENT A/O X1-2 WITH REGULAR AND UNLABORED BREATHING ON 4 LPM VIA NASAL CANULA. NO SIGNS AND SYMPTOMS OF DISTRESS NOTED AT THIS TIME. NO COMPLAINS OF PAIN OR DISCOMFORT AT THIS TIME. PATIENT ON TELE MONITOR READING AFIB 902. IV ACCESSES LIJ G #20 SL IV ACCESSES INTACT AND PATENT NOTED PT WITH INFILTRATED ACCESS ON THE LEFT HAND TAKEN OUT NEW ACCESS ON THE RIGHT HAND 24G PATENT INTACT.. SAFETY PRECAUTIONS ENFORCED WITH BED LOCKED AND AT LOWEST POSITION, SIDE RAILS UP X 2, CALL LIGHT WITHIN REACH AT ALL TIMES. WILL ENDORSE CARE TO DAY SHIFT NURSE.
[2021-09-07] MEDS: GLUCERNA SHAKE 237 ML CAN PO SCH ×2 (08:00→17:23)
[2021-09-07 08:43] VITALS: BP 146/66
[2021-09-07] MEDS: ACETAMINOPHEN 325 MG TABLET PO PRN (10:23)
[2021-09-07] MEDS: DOCUSATE SODIUM 100 MG CAPSULE PO SCH ×2 (10:30→17:22)
[2021-09-07] MEDS: ASCORBIC ACID 500 MG TABLET PO SCH (10:30)
[2021-09-07] MEDS: PANTOPRAZOLE 40 MG TABLET.DR PO SCH (10:30)
[2021-09-07] MEDS: QUETIAPINE FUMARATE 25 MG TABLET PO SCH ×2 (10:30→14:50)
[2021-09-07] MEDS: AMLODIPINE BESYLATE 10 MG TABLET PO SCH (10:31)
[2021-09-07] MEDS: APIXABAN 2.5 MG TABLET PO SCH ×2 (10:33→17:23)
[2021-09-07] MEDS: FUROSEMIDE 40 MG/4 ML VIAL IV SCH (10:36)
[2021-09-07] MEDS ORDERED: SODIUM POLYSTYRENE SULFONATE 15 G/60 ML BOTTLE RC ONE (12:00)
[2021-09-07] MEDS: BLOOD SUGAR DIAGNOSTIC 1 EACH STRIP VI SCH ×4 (12:11→22:00)
[2021-09-07 12:12] VITALS: BP 145/70
[2021-09-07 12:56] LABS: BASOPHILS % (AUTO) 0.1 % (0.0-2.0); EOSINOPHILS % (AUTO) 1.3 % (0.0-6.0); HEMATOCRIT 36 % (33-45); HEMOGLOBIN 11.6 g/dL (11.5-14.8); LYMPHOCYTES # (AUTO) 0.9 K/uL (0.8-4.8); MEAN CORPUSCULAR HGB CONC 32 g/dl (31.0-36.0); MEAN CORPUSCULAR VOLUME 102 fL (82-100); MONOCYTES # (AUTO) 0.5 K/uL (0.1-1.30); MONOCYTES % (AUTO) 4.8 % (2.0-12.0); NEUTROPHILS # (AUTO) 9.4 K/uL (1.8-8.9); NEUTROPHILS % (AUTO) 85.8 % (43.0-81.0); PLATELET COUNT (AUTO) 120 K/uL (150-450); RED BLOOD CELL COUNT(AUTO) 3.52 MIL/uL (4.0-5.2)
[2021-09-07] MEDS: *INSULIN REGULAR(HUMULIN R)HUM 100 UNIT/ML VIAL SQ PRN ×2 (13:06→13:11)
[2021-09-07] MEDS: INSULIN REGULAR, HUMAN 100 UNIT/ML 3 ML VIAL SQ PRN ×2 (13:13→18:31)
[2021-09-07 13:15] LABS: CALCIUM, SERUM 7.8 mg/dL (8.5-10.1); CREATININE 1.2 mg/dL (0.6-1.3); MAGNESIUM 2.4 mg/dL (1.8-2.4); PHOSPHORUS 4.1 mg/dL (2.5-4.9); POTASSIUM 5.5 mmol/L (3.5-5.1)
--- NOTE | 2021-09-07 15:00 | NUR ---
midline cath inserted in lt. upper arm.
[2021-09-07 16:36] VITALS: BP 108/54
[2021-09-07] MEDS: DIGOXIN 0.125 MG TABLET PO SCH (17:23)
--- NOTE | 2021-09-07 18:00 | NUR ---
pt. had thoracentesis rt. chest.500 ml drained.robbin. fairly well.additionally given kayexalate for high potassium.home care warehouse handler here all day.
[2021-09-07 20:00] VITALS: BP 97/73
[2021-09-07] MEDS: TAMSULOSIN 0.4 MG CAP.SR.24H PO SCH (21:14)
[2021-09-07] MEDS: MIRTAZAPINE 15 MG TABLET PO SCH (21:14)
[2021-09-07] MEDS: ATORVASTATIN 10 MG TABLET PO SCH (21:14)
--- NOTE | 2021-09-07 22:00 | NUR ---
GRAVITY PROSPECTING OBSERVER NOTE PATIENT MORE AWAKE/ALERT NOW AND ABLE TO ANSWER SIMPLE QUESTIONS. A/OX1 TO NAME ONLY. ABLE TO MAKE NEEDS KNOWN. PATIENT NEEDS ATTENDED FOR NOW. ABLE TO GIVE FLUIDS WITH NO COUGHING, HOB ELEVATED ALL THE WAY. WILL CONTINUE TO MONITOR.
[2021-09-08] MEDS: *INSULIN REGULAR(HUMULIN R)HUM 100 UNIT/ML VIAL SQ PRN ×2 (00:10→22:09)
[2021-09-08 00:18] VITALS: BP 152/61
[2021-09-08] MEDS: ZOSYN IVPB 3.375 G in IV D5W 50ml IV SCH ×4 (03:10→21:10)
--- NOTE | 2021-09-08 03:29 | NUR ---
BOX TOE STITCHER RECEIVING NOTE RECEIVED PATIENT IN BED WITH EYES CLOSED. EASY TO AROUSE. VERY SOMNOLENT-- ACCORDING TO AM RN PATIENT HAS BEEN LIKE THAT IN THE AM. NO S/S OF APPARENT DISTRESS ON 4LPM OF O2 VIA NC. PATIENT MOANING BUT PATIENT TOO CONFUSED TO ANSWER IF SHE HAS PAIN RIGHT NOW-- WILL CONTINUE TO MONITOR FOR NOW. PATIENT NOTED TO HAVE R. HAND #24G IV PERIPHERAL, LEFT INTRA JUGULAR IV, AND A L. UA MIDLINE-- NO FLUIDS RUNNING AT THIS TIME. NOTED TO HAVE GENERALIZED EDEMA. PATIENT DUFFY CATHETER DRAINING CLEAR, YELLOW URINE. TELE MONITOR READING CONTROLLED A-FIB @[address] WILL CONTINUE TO MONITOR MENTAL STATUS OF PATIENT.
[2021-09-08 04:00] VITALS: BP 149/57
[2021-09-08] MEDS: METOPROLOL TARTRATE 25 MG TABLET PO SCH ×3 (05:26→21:49)
[2021-09-08] MEDS: BLOOD SUGAR DIAGNOSTIC 1 EACH STRIP VI SCH ×4 (06:52→21:51)
[2021-09-08] MEDS: INSULIN REGULAR, HUMAN 100 UNIT/ML 3 ML VIAL SQ PRN ×3 (06:53→17:27)
--- NOTE | 2021-09-08 06:53 | NUR ---
SECRETARY OFFICE CLERK NOTE BS 100. NO COVERAGE NEEDED.
--- NOTE | 2021-09-08 07:40 | NUR ---
GASTROENTEROLOGIST OPENING NOTES RECEIVED PATIENT IN BED WITH EYES CLOSED, ABLE TO BE WAKEN. VERY SOMNOLENT, A/O X1. PATIENT HAS AN ORDER FOR DNR/DNI. SYMMETRICAL CHEST EXPANSION ON 4L OF O2 VIA NC. PATIENT NOTED TO HAVE R HAND #24G IV PERIPHERAL, LEFT INTRA JUGULAR IV, AND L UA MIDLINE-- INTACT AND PATENT, SL. GENERALIZED EDEMA NOTED. DUFFY CATHETER IN PLACE DRAINING CLEAR, YELLOW URINE. TELE MONITOR READING CONTROLLED A-FIB WITH HR IN 90's. SAFETY IN PLACE: BED IN LOWEST POSITION, WHEELS LOCKED, SIDE RAILS UP X2, CALL LIGHT WITHIN REACH. WILL CONTINUE TO MONITOR.
--- NOTE | 2021-09-08 07:52 | NUR ---
MS RN NOTE REPORT GIVEN TO ELVIN SCHUMACHER FOR CONTINUITY OF CARE.
[2021-09-08 08:00] VITALS: BP 124/62
[2021-09-08] MEDS ORDERED: SODIUM POLYSTYRENE SULFONATE 15 G/60 ML BOTTLE PO ONE (08:00)
[2021-09-08] MEDS: GLUCERNA SHAKE 237 ML CAN PO SCH ×2 (08:32→17:29)
[2021-09-08] MEDS: DOCUSATE SODIUM 100 MG CAPSULE PO SCH ×2 (08:32→17:27)
[2021-09-08] MEDS: APIXABAN 2.5 MG TABLET PO SCH ×2 (08:33→17:26)
[2021-09-08] MEDS: AMLODIPINE BESYLATE 10 MG TABLET PO SCH (08:35)
[2021-09-08] MEDS: PANTOPRAZOLE 40 MG TABLET.DR PO SCH (08:35)
[2021-09-08] MEDS: FUROSEMIDE 40 MG/4 ML VIAL IV SCH (08:35)
[2021-09-08] MEDS: ASCORBIC ACID 500 MG TABLET PO SCH (08:35)
[2021-09-08] MEDS: QUETIAPINE FUMARATE 25 MG TABLET PO SCH ×2 (08:35→17:28)
[2021-09-08 09:52] LABS: BASOPHILS % (AUTO) 0.3 % (0.0-2.0); EOSINOPHILS % (AUTO) 1.7 % (0.0-6.0); HEMATOCRIT 35 % (33-45); HEMOGLOBIN 11.4 g/dL (11.5-14.8); LYMPHOCYTES % (AUTO) 9.3 % (20.0-44.0); MEAN CORPUSCULAR HGB CONC 33 g/dl (31.0-36.0); MEAN CORPUSCULAR VOLUME 100 fL (82-100); MONOCYTES # (AUTO) 0.9 K/uL (0.1-1.30); MONOCYTES % (AUTO) 8.1 % (2.0-12.0); NEUTROPHILS # (AUTO) 8.6 K/uL (1.8-8.9); NEUTROPHILS % (AUTO) 80.6 % (43.0-81.0); PLATELET COUNT (AUTO) 91 K/uL (150-450); RED BLOOD CELL COUNT(AUTO) 3.49 MIL/uL (4.0-5.2); WHITE BLOOD COUNT (AUTO) 10.7 K/uL (4.3-11.0)
[2021-09-08 10:10] LABS: CALCIUM, SERUM 7.8 mg/dL (8.5-10.1); CARBON DIOXIDE 27 mmol/L (21-32); CHLORIDE 107 mmol/L (98-107); CREATININE 1.5 mg/dL (0.6-1.3); GLUCOSE 138 mg/dL (74-106); POTASSIUM 4.6 mmol/L (3.5-5.1); SODIUM SERUM 139 mmol/L (136-145); UREA NITROGEN, BLOOD 52 mg/dL (7-18)
[2021-09-08 12:10] VITALS: BP 134/52
[2021-09-08] MEDS: DIGOXIN 0.125 MG TABLET PO SCH (12:33)
[2021-09-08 16:18] VITALS: BP 126/52
--- NOTE | 2021-09-08 18:40 | NUR ---
CHIEF OF HARBOR PATROL CLOSING NOTES PATIENT IN BED WITH EYES CLOSED, ABLE TO BE WAKEN. A/O X1. PATIENT HAS AN ORDER FOR DNR/DNI. ON 4L OF O2 VIA NC WITH NO S/SX OF RESPIRATORY DISTRESS. R HAND #24G IV PERIPHERAL, LEFT INTRA JUGULAR IV, AND L UA MIDLINE-- INTACT AND PATENT, SL. GENERALIZED EDEMA NOTED. DUFFY CATHETER IN PLACE DRAINING CLEAR, YELLOW URINE 1,000ML OUTPUT. TELE MONITOR READING CONTROLLED A-FIB WITH HR IN 80's. ALL ORDERS CARRIED OUT AND NEEDS MET. CONTINUED ANTIBIOTIC TREATMENT. SAFETY IN PLACE: BED IN LOWEST POSITION, WHEELS LOCKED, SIDE RAILS UP X2, CALL LIGHT WITHIN REACH. WILL ENDORSE TO CELLOPHANE WORKER NURSE FOR MOHSEN
--- NOTE | 2021-09-08 19:45 | NUR ---
MOLD CHECKER NOTES AFIB CONTROLLED-78 ON TELE MONITOR,ON BED SLEEPING,AROUSABLE TO VERBAL STIMULI,BREATHING NON LABORED,ON 4L O2/NC TO KEEP O2 SAT ABOVE 90%,100% AT THE MOMENT.WITH LEFT IJ SALINE LOCK,RIGHT SALINE LOCK AND LEFT UPPER ARM MDLINE FOR MEDS.DUFFY CATH IN PLACE DRAINING YELLOWISH URINE OUTPUT.WITH GENERALIZED BODY EDEMA NOTED,DNR/DNI STATUS WITH POLST ON CHART.WILL CONTINUE TO MONITOR STATUS.
[2021-09-08 20:00] VITALS: BP 116/57
--- NOTE | 2021-09-08 21:30 | NUR ---
METALS SALES REPRESENTATIVE NOTES ACCU-CHECK BLOOD SUGAR CHECK 163,COVERED WITH HUMULIN R 3 UNITS PER SLIDING SCALE.
[2021-09-08] MEDS: TAMSULOSIN 0.4 MG CAP.SR.24H PO SCH (21:49)
[2021-09-08] MEDS: MIRTAZAPINE 15 MG TABLET PO SCH (21:49)
[2021-09-08] MEDS: QUETIAPINE FUMARATE 100 MG TABLET PO SCH (21:50)
[2021-09-08] MEDS: ATORVASTATIN 10 MG TABLET PO SCH (21:50)
--- NOTE | 2021-09-08 22:00 | NUR ---
KILN CAR REPAIRER NOTES ALL PO MEDS CRUSHED AND GIVEN WITH APPLE SAUCE,TAKEN WELL.NEGATIVE FOR ASPIRATION.
[2021-09-09] VITALS: BP 104/57
[2021-09-09] MEDS: ZOSYN IVPB 3.375 G in IV D5W 50ml IV SCH (02:54)
[2021-09-09 04:00] VITALS: BP 106/60
[2021-09-09] MEDS: METOPROLOL TARTRATE 25 MG TABLET PO SCH ×3 (05:00→21:32)
--- NOTE | 2021-09-09 05:30 | NUR ---
PLANT SUPERINTENDENT NOTES ACCU-CHECK BLOOD SUGAR CHECK 132,COVERED WITH HUMULIN R 2 UNITS PER SLIDING SCALE.
[2021-09-09] MEDS: BLOOD SUGAR DIAGNOSTIC 1 EACH STRIP VI SCH ×4 (05:51→21:33)
[2021-09-09] MEDS: INSULIN REGULAR, HUMAN 100 UNIT/ML 3 ML VIAL SQ PRN ×2 (05:54→16:55)
--- NOTE | 2021-09-09 06:44 | NUR ---
SIZE STAMPER NOTES NO SIGNIFICANT CHANGE IN STATUS.ALL DUE MEDS GIVEN ORALLY.NEGATIVE FOR ASPIRATION,DNR/DNI STATUS.REPOSITIONED.
[2021-09-09 07:13] LABS: BASOPHILS % (AUTO) 0.5 % (0.0-2.0); EOSINOPHILS % (AUTO) 3.2 % (0.0-6.0); HEMATOCRIT 34 % (33-45); HEMOGLOBIN 11.2 g/dL (11.5-14.8); LYMPHOCYTES # (AUTO) 1.1 K/uL (0.8-4.8); LYMPHOCYTES % (AUTO) 13.1 % (20.0-44.0); MEAN CORPUSCULAR HGB CONC 33 g/dl (31.0-36.0); MEAN CORPUSCULAR VOLUME 100 fL (82-100); MONOCYTES # (AUTO) 0.7 K/uL (0.1-1.30); MONOCYTES % (AUTO) 8.5 % (2.0-12.0); NEUTROPHILS % (AUTO) 74.7 % (43.0-81.0); PLATELET COUNT (AUTO) 95 K/uL (150-450); WHITE BLOOD COUNT (AUTO) 8.1 K/uL (4.3-11.0)
--- NOTE | 2021-09-09 07:30 | NUR ---
JAMMER OPERATOR OPENING NOTES RECEIVED PATIENT IN BED WITH EYES CLOSED, EASILY AWAKEN BY VERBAL AND TACTILE STIMULI. A/O X2-3. ON DNR/DNI. ON RA, TOLERATING WELL, NO S/SX OF RESPIRATORY DISTRESS. R HAND #24G IV PERIPHERAL, LEFT INTRA JUGULAR IV, AND L UA MIDLINE, INTACT AND PATENT, SL. GENERALIZED EDEMA NOTED. DUFFY CATHETER IN PLACE DRAINING CLEAR, YELLOW URINE 1,000ML OUTPUT. TELE MONITOR READING CONTROLLED A-FIB WITH HR IN 80's. SAFETY PRECAUTIONS IN PLACE, BED ON LOWEST LOCKED POSITION, SIDE RAILS UP X 2. WILL CONTINUE TO MONITOR ACCORDINGLY.
[2021-09-09 07:37] LABS: CALCIUM, SERUM 7.7 mg/dL (8.5-10.1); CARBON DIOXIDE 27 mmol/L (21-32); CHLORIDE 107 mmol/L (98-107); CREATININE 1.5 mg/dL (0.6-1.3); GLUCOSE 140 mg/dL (74-106); MAGNESIUM 2.1 mg/dL (1.8-2.4); PHOSPHORUS 4.3 mg/dL (2.5-4.9); POTASSIUM 3.5 mmol/L (3.5-5.1); SODIUM SERUM 140 mmol/L (136-145); UREA NITROGEN, BLOOD 49 mg/dL (7-18)
[2021-09-09] MEDS: PANTOPRAZOLE 40 MG TABLET.DR PO SCH (07:44)
[2021-09-09 08:00] VITALS: BP 112/67
[2021-09-09] MEDS: GLUCERNA SHAKE 237 ML CAN PO SCH ×2 (08:01→16:29)
[2021-09-09] MEDS: APIXABAN 2.5 MG TABLET PO SCH ×2 (08:51→16:28)
[2021-09-09] MEDS: AMLODIPINE BESYLATE 10 MG TABLET PO SCH (08:52)
[2021-09-09] MEDS: ASCORBIC ACID 500 MG TABLET PO SCH (08:52)
[2021-09-09] MEDS: QUETIAPINE FUMARATE 25 MG TABLET PO SCH ×3 (08:52→16:28)
[2021-09-09] MEDS: DOCUSATE SODIUM 100 MG CAPSULE PO SCH ×2 (08:52→16:28)
[2021-09-09] MEDS: *INSULIN REGULAR(HUMULIN R)HUM 100 UNIT/ML VIAL SQ PRN ×2 (11:45→21:48)
[2021-09-09] MEDS: DIGOXIN 0.125 MG TABLET PO SCH (13:06)
[2021-09-09] MEDS: ACETAMINOPHEN 325 MG TABLET PO PRN (17:28)
--- NOTE | 2021-09-09 18:58 | NUR ---
POLE SETTER CLOSING NOTES PATIENT IN BED WITH EYES CLOSED, EASILY AWAKEN BY VERBAL AND TACTILE STIMULI. A/O X2-3. ON DNR/DNI. ON RA, TOLERATING WELL, NO S/SX OF RESPIRATORY DISTRESS. R HAND #24G IV PERIPHERAL AND L UA MIDLINE, INTACT AND PATENT, SL. GENERALIZED EDEMA NOTED. DUFFY CATHETER IN PLACE DRAINING CLEAR, YELLOW URINE 300 ML OUTPUT. TELE MONITOR READING CONTROLLED A-FIB WITH HR IN 70's. SAFETY PRECAUTIONS IN PLACE, BED ON LOWEST LOCKED POSITION, SIDE RAILS UP X 2. ALL NEEDS ATTENDED AND MET. DUE MEDS GIVEN ORDERED. WILL ENDORSE TO ONCOMING SHIFT FOR MOHSEN.
[2021-09-09 20:00] VITALS: BP 142/54
--- NOTE | 2021-09-09 20:00 | NUR ---
TURNER AND FORMER AUTOMATIC NOTES RECEIVED LAYING ON BED ON HIGH FOWLERS POSITION,A/O X1-2,CONFUSED,SAYING WHAT TIME SHE GONNA GO HOME,SALINE LOCK LEFT UPPER ARM MIDLINE INTACT AND PATENT.DUFFY CATH IN PLACE DRAINING YELLOWISH OUTPUT.DNR/DNI STATUS,WILL CONTINUE TO MONITOR.
--- NOTE | 2021-09-09 21:30 | NUR ---
HANSARD REPORTER NOTES ACCU-CHECK BLOOD SUGAR CHECK 142,COVERED WITH HUMULIN R 2 UNITS PER SLIDING SCALE.GIVEN MILK SUPPLEMENT.
[2021-09-09] MEDS: TAMSULOSIN 0.4 MG CAP.SR.24H PO SCH (21:32)
[2021-09-09] MEDS: MIRTAZAPINE 15 MG TABLET PO SCH (21:33)
[2021-09-09] MEDS: QUETIAPINE FUMARATE 100 MG TABLET PO SCH (21:33)
[2021-09-09] MEDS: ATORVASTATIN 10 MG TABLET PO SCH (21:33)
[2021-09-10] VITALS: BP 141/62
--- NOTE | 2021-09-10 02:00 | NUR ---
NET PROGRAMMER ANALYST NOTES SLEEPING THIS TIME,KEPT WARM AND COMFORTABLE.
[2021-09-10 04:00] VITALS: BP 110/60
[2021-09-10] MEDS: METOPROLOL TARTRATE 25 MG TABLET PO SCH ×2 (05:25→13:09)
[2021-09-10] MEDS: BLOOD SUGAR DIAGNOSTIC 1 EACH STRIP VI SCH ×2 (05:28→11:18)
--- NOTE | 2021-09-10 05:30 | NUR ---
LITERARY AGENT NOTES ACCU-CHECK BLOOD SUGAR CHECK 130,NO INSULIN COVERAGE
--- NOTE | 2021-09-10 05:45 | NUR ---
DINING ROOM HELPER NOTES MORNING CARE RENDERED BY TOM CRUZ.SACRAL EXCORIATION CLEANSE WITH SOAP AND WATER,PAT DRY,APPLIED REMEDY AND COVERED WITH MEPILEX.REPOSITIONED.
--- NOTE | 2021-09-10 06:43 | NUR ---
RETAIL ACCOUNT SPECIALIST NOTES FAIRLY RESTED AT NIGHT,NO SOB NOTED,O2 IN USED ON AND OFF,PO MEDS TOLERATED WELL,NEGATIVE FOR ASPIRATION.BLOOD SUGAR WITH NORMAL LIMITS.DNR/DNI STATUS WITH POLST.IN NO ACUTE DISTRESS.
[2021-09-10 06:45] LABS: BASOPHILS % (AUTO) 0.5 % (0.0-2.0); EOSINOPHILS % (AUTO) 3.4 % (0.0-6.0); HEMATOCRIT 34 % (33-45); LYMPHOCYTES # (AUTO) 1.4 K/uL (0.8-4.8); LYMPHOCYTES % (AUTO) 18.5 % (20.0-44.0); MEAN CORPUSCULAR HGB CONC 33 g/dl (31.0-36.0); MEAN CORPUSCULAR VOLUME 99 fL (82-100); MONOCYTES # (AUTO) 0.6 K/uL (0.1-1.30); MONOCYTES % (AUTO) 8.4 % (2.0-12.0); NEUTROPHILS # (AUTO) 5.2 K/uL (1.8-8.9); NEUTROPHILS % (AUTO) 69.2 % (43.0-81.0); PLATELET COUNT (AUTO) 112 K/uL (150-450); RED BLOOD CELL COUNT(AUTO) 3.38 MIL/uL (4.0-5.2); WHITE BLOOD COUNT (AUTO) 7.6 K/uL (4.3-11.0)
[2021-09-10 07:14] LABS: CALCIUM, SERUM 7.8 mg/dL (8.5-10.1); CREATININE 1.3 mg/dL (0.6-1.3); POTASSIUM 3.5 mmol/L (3.5-5.1)
--- NOTE | 2021-09-10 07:20 | NUR ---
RN OPENING NOTES RECEIVED PATIENT IN BED, AWAKE, VERBALLY RESPONSIVE, NO SIGNS OF ACUTE DISTRESS NOTED. ON O2 @ 2LPM VIA N/C, SATURATION @ 99%, BREATHING EVEN AND UNLABORED, NO SOB NOTED. WITH IV ACCESS ON MAGALIS MIDLINE, AND RHAND #24G, SALINE LOCKED, INTACT AND PATENT. NO C/O PAIN AT THIS TIME. F/C INTACT, DRAINING CLEAR YELLOW URINE. SAFETY MEASURES IN PLACE. BED IN LOWEST LOCKED POSITION, SR UP X2, CALL LIGHT PLACED WITHIN EASY EACH. WILL CONTINUE TO MONITOR.
[2021-09-10] MEDS: DOCUSATE SODIUM 100 MG CAPSULE PO SCH (08:12)
[2021-09-10] MEDS: ASCORBIC ACID 500 MG TABLET PO SCH (08:12)
[2021-09-10] MEDS: PANTOPRAZOLE 40 MG TABLET.DR PO SCH (08:12)
[2021-09-10] MEDS: QUETIAPINE FUMARATE 25 MG TABLET PO SCH ×2 (08:13→13:06)
[2021-09-10] MEDS: AMLODIPINE BESYLATE 10 MG TABLET PO SCH (08:13)
[2021-09-10] MEDS: APIXABAN 2.5 MG TABLET PO SCH (08:14)
[2021-09-10] MEDS: GLUCERNA SHAKE 237 ML CAN PO SCH (08:14)
[2021-09-10 08:25] VITALS: BP 134/89
[2021-09-10] MEDS: INSULIN REGULAR, HUMAN 100 UNIT/ML 3 ML VIAL SQ PRN (11:23)
[2021-09-10 13:09] VITALS: BP 126/75
--- NOTE | 2021-09-10 16:16 | NUR ---
MANAGER TELEMARKETING NOTES PATIENT DISCHARGED TO [facility] IN STABLE CONDITION. PATIENT IS A/O X2, VERBALLY RESPONSIVE, NOT IN ACUTE DISTRESS. VITAL SIGNS STABLE. PATIENT DOESN'T HAVE ANY BELONGINGS. IV ACCESS ON MAGALIS AND LHAND REMOVED, NO BLEEDING NOTED. PRESSURE DRESSING APPLIED. PHOTO OF SKIN ISSUE TAKEN, PLACED IN PATIENT'S CHART. REPORT CALLED TO ELVIN WELLS FROM [facility]. EXIT CARE FOLDER AND REPORT GIVEN TO SHORTY EMT. PATIENT PICKED UP BY [facility] AND LEFT UNIT @ 1610. CN AWARE OF DISCHARGE.
== END 2021-09-10 16:10 | DRG 291 ==
LOC: ER 22:41 → TELE 09-05 06:00 → MED 09-10 08:39
PROVIDERS: ADMIT Internal Medicine; ATTEND Internal Medicine
PROC: 0W993ZX Drainage of Right Pleural Cavity, Percutaneous Approach, Diagnostic (ICD-10-PCS; 2021-09-05)
PROC: 05HC33Z Insertion of Infusion Device into Left Basilic Vein, Percutaneous Approach (ICD-10-PCS; principal; 2021-09-07)
DX: I13.0 Hypertensive heart and chronic kidney disease with heart failure and stage 1 through stage 4 chronic kidney disease, or unspecified chronic kidney disease (principal); N17.0 Acute kidney failure with tubular necrosis; G93.41 Metabolic encephalopathy; I50.23 Acute on chronic systolic (congestive) heart failure; J96.01 Acute respiratory failure with hypoxia; E46 Unspecified protein-calorie malnutrition; I25.10 Atherosclerotic heart disease of native coronary artery without angina pectoris; N18.30 Chronic kidney disease, stage 3 unspecified; I48.91 Unspecified atrial fibrillation; D64.9 Anemia, unspecified; E11.22 Type 2 diabetes mellitus with diabetic chronic kidney disease; E11.65 Type 2 diabetes mellitus with hyperglycemia; E78.5 Hyperlipidemia, unspecified; E87.5 Hyperkalemia; E88.09 Other disorders of plasma-protein metabolism, not elsewhere classified; F03.90 Unspecified dementia, unspecified severity, without behavioral disturbance, psychotic disturbance, mood disturbance, and anxiety; I34.0 Nonrheumatic mitral (valve) insufficiency; I42.9 Cardiomyopathy, unspecified; I48.0 Paroxysmal atrial fibrillation; S30.0XXA Contusion of lower back and pelvis, initial encounter; X58.XXXA Exposure to other specified factors, initial encounter; Y92.129 Unspecified place in nursing home as the place of occurrence of the external cause; Z79.4 Long term (current) use of insulin; Z79.84 Long term (current) use of oral hypoglycemic drugs; Z79.899 Other long term (current) drug therapy; Z86.73 Personal history of transient ischemic attack (TIA), and cerebral infarction without residual deficits; Z86.19 Personal history of other infectious and parasitic diseases; Z79.01 Long term (current) use of anticoagulants; K21.9 Gastro-esophageal reflux disease without esophagitis; Z87.440 Personal history of urinary (tract) infections; F25.9 Schizoaffective disorder, unspecified; F01.50 Vascular dementia, unspecified severity, without behavioral disturbance, psychotic disturbance, mood disturbance, and anxiety
CPT/HCPCS: 36410; 36415; 70450-TC; 71045-TC; 71250-TC; 76770-TC; 80048-TC; 80076-TC; 80162-TC; 82040-TC; 82140-TC; 82962-TC; 83605-TC; 83690-TC; 83735-TC; 84100-TC; 84155-TC; 84484-TC; 85025-TC; 85730-TC; 87040-TC; 87070-TC; 87081-TC; 87086-TC; 88108-TC; 88305-TC; 89051-TC; 95819-TC; C9803; G0378; J0692; J1650; J1815; J1940; J2543; J7050; J7060